=== PATIENT | female | born 1985 | race Caucasian/White ===

== ENCOUNTER 2016-12-16 15:38 | Emergency (ER) | payer OTHER ==
[~2016-12-16] VITALS: Wt 79.5 kg
[~2016-12-16 15:38] MED LIST: AZIT250T94 PO; BACTDS PO; BENZ2TAB37 PO; CEPH-443 PO; D-ME473S2 PO; ELEC100080 PO; HALO5TAB23 PO; IBUP-1542 PO; LITH300T26 PO; LORA1TAB PO; METF500T4 PO; NAPR-260 PO; NITR-58 PO; ONDA4TAB8 PO; PSEU120T51 PO; TRAM50TA2 PO
--- NOTE | 2016-12-16 16:29 | ERD ---
ER Documentation Chief Complaint Date/Time DATE: 12/16/16 TIME: 16:27 Chief Complaint PT REFERAL FOR ABD PAIN, BLURRY VISION HPI This 31-year-old diabetic female reports suboptimal control, reports change in vision, right as blurry vision. Patient reports she has a history of anorexia which is controlled she reports that she is taking her vision as prescribed. Denies polydipsia, polyuria, polyphagia. ROS All systems reviewed and are negative except as per history of present illness. Medications Home Meds Active Scripts Ibuprofen* (Motrin*) 600 Mg Tab, 600 MG PO Q8 for 10 Days, #30 TAB 0 Refills Prov:ALPHONSO GOINS PA-C 10/04/15 Tramadol HCl (Tramadol HCl) 50 Mg Tablet, 50 MG PO Q6, #20 TAB Prov:PATRICIA SHELBY NP 07/12/15 Naproxen* (Naprosyn*) 500 Mg Tablet, 500 MG PO BID Y for PAIN AND/OR INFLAMMATION, #30 TAB Prov:PATRICIA SHELBY NP 07/12/15 Pseudoephedrine Hcl (Sudafed 12 Hour) 120 Mg Tablet.sa, 120 MG PO DAILY, #30 0 Refills Prov:ALPHONSO GOINS PA-C 05/02/15 Ibuprofen* (Motrin*) 600 Mg Tab, 600 MG PO Q6, #16 TAB Prov:PATRICIO FIERRO MD 04/17/15 Dextromethorphan Hb-Promethazine Hcl* (Promethazine DM* Syrup) 473 Ml Syrup, 5 ML PO Q6 Y for COUGH for 5 Days, ML Prov:PATRICIO FIERRO MD 04/17/15 Azithromycin* (Zithromax*) 250 Mg Tablet, 250 MG PO .ZPACK DIRECTED, #6 TAB TAKE 500 MG (2 TABS) THE FIRST DAY THEN 250 MG (1 TAB) DAYS 2-5 Prov:PATRICIO FIERRO MD 04/17/15 Ibuprofen* (Motrin*) 600 Mg Tab, 600 MG PO Q6, #14 TAB Prov:PATRICIO FIERRO MD 01/29/15 Sulfamethoxazole-Trimethoprim* (Bactrim* DS) 800-160 Mg Tab, 1 TAB PO BID for 7 Days, TAB Prov:PATRICIO FIERRO MD 01/29/15 Cephalexin* (Keflex*) 500 Mg Capsule, 500 MG PO QID for 7 Days, CAP Prov:PATRICIO FIERRO MD 01/29/15 Electrolyte,Oral (Pedialyte) 1,000 Ml Solution, 100 ML PO Q6 Y for dehydration, #100 ML Prov:HAVEN JOHNSON PA-C 11/24/14 Ondansetron Hcl* (Zofran*) 4 Mg Tablet, 4 MG PO Q6H for NAUSEA AND/OR VOMITING, #30 TAB Prov:HAVEN JOHNSON PA-C 11/24/14 Lorazepam* (Lorazepam*) 1 Mg Tablet, 1 MG PO Q8H Y for ANXIETY, #8 Prov:SHANNAN LI DO 11/06/14 Nitrofurantoin Monohyd Macrocr* (Macrobid*) 100 Mg Capsr, 100 MG PO BID for 10 Days, CAP Prov:SHANNAN LI DO 11/06/14 Reported Medications Metformin* (Glucophage*) Unknown Strength Tab, PO DAILY, #20 TAB 05/27/15 Benztropine Mesylate* (Benztropine Mesylate*) 2 Mg Tablet, PO TID, 0 Refills 11/18/13 [place] Carbonate* (Lithobid*) 300 Mg Tabsr, PO BID, 0 Refills 11/18/13 Haloperidol* (Haldol*) 5 Mg Tab, 1 TAB PO BID, 0 Refills 11/18/13 Allergies Allergies: Coded Allergies: Penicillins (Verified Allergy, Unknown, 12/16/16) PMhx/Soc History of Surgery: Yes (C SECTION; APPENDECTOMY) Anesthesia Reaction: No Hx Neurological Disorder: No Hx Respiratory Disorders: No Hx Cardiac Disorders: No Hx Psychiatric Problems: Yes (ANOREXIA; SCHIZOPHRENIA, diabetes) Hx Miscellaneous Medical Probl: No Hx Alcohol Use: No Hx Substance Use: No Hx Tobacco Use: No Smoking Status: Never smoker Physical Exam Vitals Stable, triage notes reviewed Physical Exam Const: Well-nourished well-hydrated well-appearing 31-year-old female no acute distress Head: Atraumatic Eye Exam: Visual Acuity: Right eye 20/200, left eye 20/200, bilateral 20/100 Visual Hein: Normal visual hein. Patient has blind spots in her vision lateral canthus is bilaterally Lac ducts/glands: No swelling Lids w/ evertion: Normal, no foreign body ENT: Normal External Ears, Nose and Mouth. Neck: Full range of motion..~ No meningismus. Resp: Cardio: Abd: Skin: Back: Ext: Neur: Awake and alert Psych: Normal Mood and Affect Results 24 hrs Laboratory Tests Test 12/16/16 16:30 12/16/16 17:42 White Blood Count 8.810^3/ul Red Blood Count 4.6510^6/ul Hemoglobin 13.1g/dl Hematocrit 38.9% Mean Corpuscular Volume 83.7fl Mean Corpuscular Hemoglobin 28.2pg Mean Corpuscular Hemoglobin Concent 33.7g/dl Red Cell Distribution Width 13.6% Platelet Count 60592^3/UL Mean Platelet Volume 10.8fl Neutrophils % 69.4% Lymphocytes % 24.0% Monocytes % 4.9% Eosinophils % 0.9% Basophils % 0.3% Nucleated Red Blood Cells % 0.0/100WBC Neutrophils # 6.110^3/ul Lymphocytes # 2.110^3/ul Monocytes # 0.410^3/ul Eosinophils # 0.110^3/ul Basophils # 0.010^3/ul Nucleated Red Blood Cells # 0.010^3/ul Urine Color YELLOW Urine Clarity SLIGHTLY CLOUDY Urine pH 6.0 Urine Specific [place] 1.032 Urine Ketones 2+mg/dL Urine Nitrite NEGATIVEmg/dL Urine Bilirubin NEGATIVEmg/dL Urine Urobilinogen NEGATIVEmg/dL Urine Leukocyte Esterase 2+Kamla/ul Urine Microscopic RBC 2/HPF Urine Microscopic WBC 9/HPF Urine Squamous Epithelial Cells FEW/HPF Urine Bacteria FEW/HPF Urine Mucus FEW/HPF Urine Hemoglobin NEGATIVEmg/dL Urine Glucose 3+mg/dL Urine Total Protein NEGATIVEmg/dl Sodium Level 140mmol/L Potassium Level 3.9mmol/L Chloride Level 99mmol/L Carbon Dioxide Level 27mmol/L Anion Gap 18 Blood Urea Nitrogen 11mg/dl Creatinine 0.60mg/dl Glucose Level 238mg/dl Calcium Level 10.2mg/dl Phosphorus Level 3.5mg/dl Magnesium Level 1.9mg/dl Lipase 117U/L Bedside Glucose 188mg/dL Current Medications Medications (Trade) Dose Ordered Sig/Mathew Route PRN Reason Start Time Stop Time Status Last Admin Dose Admin Sodium Chloride (NS) 1,000 ml @ 1,000 mls/hr Q1H ONCE IV 12/16/16 16:30 12/16/16 17:29 DC 12/16/16 16:39 Interpretation text CBC shows no evidence of hemorrhage or infection Chemistry shows no evidence of significant electrolyte abnormalities or renal insufficiency Liver function tests shows no evidence of acute biliary or hepatic dysfunction Lipase shows no evidence of acute pancreatitis Procedures/MDM PROCEDURE: US orbits. CLINICAL INDICATION: Bilateral visual disturbance. History of diabetes. TECHNIQUE: High-resolution sonography of the orbits was performed in the axial and sagittal planes. COMPARISON: None. FINDINGS: On the right side, there is an irregular region of echogenicity posteriorly which may indicate retinal detachment with adjacent hemorrhage. On the left side, there is increased echogenicity posteriorly in a smaller region which may indicate a small region of that no potential adjacent hemorrhage. IMPRESSION: 1. Possible bilateral retinal detachment with adjacent hemorrhage. Right is worse than left. Electronically viewed and signed by .Patricio Clark MD, on 12/16/2016 18:32 This 31-year-old diabetic female presents to emergency department for evaluation of a change in vision. Patient reports sudden onset of "blurry" vision. Patient reports taking all medication as prescribed, denies injury, does not wear glasses. Patient's visual acuity is abnormal at 2200 right eye, left eye, and bilateral vision is 20/100. Patient is Chinese-speaking a rn documentation specialist provided a percent of orbits performed with radiologist's findings as : on the right side, there is an irregular region of echogenicity posteriorly which may indicate retinal detachment with adjacent hemorrhage. On the left side, there is increased echogenicity posteriorly in a smaller region which may indicate a small region of that no potential adjacent hemorrhage. Case discussed with supervising physician Dr Stewart patient will be for emergent ophthalmology treatment. Departure Diagnosis: Primary Impression: Abnormal ophthalmologic exam Additional Impression: Change in vision Condition: KORY Booth Dec 16, 2016 16:29
[2016-12-16] MEDS ORDERED: SOD CHLORIDE 0.9% 1,000 ML IV ONE (16:30)
[2016-12-16 17:23] LABS: BASOPHILS % 0.3 % (0.0-2.0); EOSINOPHILS # 0.1 10^3/ul (0.0-0.5); EOSINOPHILS % 0.9 % (0.0-7.0); HEMATOCRIT 38.9 % (37.0-47.0); HEMOGLOBIN 13.1 g/dl (12.0-16.0); LYMPHOCYTES # 2.1 10^3/ul (0.8-2.9); MEAN CORPUSCULAR HEMOGLOBIN 28.2 pg (29.0-33.0); MEAN CORPUSCULAR HGB CONC 33.7 g/dl (32.0-37.0); MEAN CORPUSCULAR VOLUME 83.7 fl (82.0-101.0); MEAN PLATELET VOLUME 10.8 fl (7.4-10.4); MONOCYTE # 0.4 10^3/ul (0.3-0.9); MONOCYTES % 4.9 % (0.0-11.0); NEUTROPHIL # 6.1 10^3/ul (1.6-7.5); NEUTROPHILS % 69.4 % (39.0-77.0); PLATELET COUNT 260 10^3/UL (140-415); RED BLOOD COUNT 4.65 10^6/ul (4.20-5.40); RED CELL DISTRIBUTION WIDTH 13.6 % (11.5-14.5); WHITE BLOOD COUNT 8.8 10^3/ul (4.8-10.8)
[2016-12-16 17:34] LABS: ADD UMIC YES; UR ASCORBIC ACID NEGATIVE (NEGATIVE); UR BACTERIA FEW /HPF (NONE SEEN); UR BILIRUBIN (Dip) NEGATIVE (NEGATIVE); UR BLOOD (Dip) NEGATIVE (NEGATIVE); UR CLARITY SLIGHTLY CLOUDY (CLEAR); UR COLOR YELLOW (YELLOW); UR GLUCOSE (Dip) 3+ mg/dL (NEGATIVE); UR KETONES (Dip) 2+ mg/dL (NEGATIVE); UR LEUKOCYTE ESTERASE (Dip) 2+ Leu/ul (NEGATIVE); UR MUCUS FEW /HPF (NONE SEEN); UR NITRITE (Dip) NEGATIVE (NEGATIVE); UR RBC 2 /HPF (0-5); UR SPECIFIC GRAVITY (Dip) 1.032 (1.003-1.030); UR SQUAMOUS EPITHELIAL CELL FEW /HPF (FEW); UR TOTAL PROTEIN (Dip) NEGATIVE (NEGATIVE); UR UROBILINOGEN (Dip) NEGATIVE (NEGATIVE)
[2016-12-16 17:51] LABS: CALCIUM 10.2 mg/dl (8.4-10.2); CREATININE 0.6 mg/dl (0.44-1.00); POTASSIUM 3.9 mmol/L (3.5-5.1)
[2016-12-16 18:29] LABS: MAGNESIUM 1.9 mg/dl (1.7-2.5); PHOSPHORUS 3.5 mg/dl (2.5-4.9)
--- NOTE | 2016-12-16 18:33 | RADRPT ---
PROCEDURE: US orbits. CLINICAL INDICATION: Bilateral visual disturbance. History of diabetes. TECHNIQUE: High-resolution sonography of the orbits was performed in the axial and sagittal planes . COMPARISON: None. FINDINGS: On the right side, there is an irregular region of echogenicity posteriorly which may indicate retin al detachment with adjacent hemorrhage. On the left side, there is increased echogenicity posteriorly in a smaller region which may indicate a small region of that no potential adjacent hemorrhage. IMPRESSION: 1. Possible bilateral retinal detachment with adjacent hemorrhage. Right is worse than left. RPTAT: QQ .Leo Clark MD, MD Date Time Electronically viewed and signed by .Leo Clark MD, MD on 12/16/2016 18:32 .R/
[2016-12-16 22:04] VITALS: BP 129/81; PULSE 81; RESP 16; TEMP 97.2
--- NOTE | 2016-12-16 22:04 | QN ---
Documentation Comment I have seen and evaluated the patient along with the PA and/or [employer] INFORMATION CLERK provider. I agree with the evaluation and plan of care. Please see their documentation for full ER course and evaluation. In short: The patient presents with bilateral vision changes since yesterday. An interpreter translator was used. On exam: The patient on my exam has clear vision bilaterally with no field cuts, no afferent pupillary defect. The patient's visual acuities are also improving and are 20/70 bilaterally and were initially 20/200. Assessment and plan: FINDINGS: On the right side, there is an irregular region of echogenicity posteriorly which may indicate retinal detachment with adjacent hemorrhage. On the left side, there is increased echogenicity posteriorly in a smaller region which may indicate a small region of that no potential adjacent hemorrhage. IMPRESSION: 1. Possible bilateral retinal detachment with adjacent hemorrhage. Right is worse than left. RPTAT: QQ The ultrasound is not consistent with the patient's clinical exam. The patient does not have vision loss. She describes cloudiness. I believe this may be more likely secondary to vitreous hemorrhage given the patient's history of diabetes. However, given the ultrasound findings I will attempt to transfer the patient to see an zigzag elastic attacher. I do not have an zigzag elastic attacher to his composition tile layer and can come to the emergency department. A phone call has been made to [facility]. Unfortunately they do not have any access at any of their facilities. We will continue to attempt to find care but transfer may be very difficult. I continue to discuss this with the patient. She states that she does not want to wait for her transfer I would like to leave the emergency room. She was advised that she needs to see an zigzag elastic attacher in 12-24 hours if not sooner. The patient states that she will take herself to an emergency room and return to our ER if any worsening symptoms occur. The patient left against my medical advice. CHITO SEYMOUR MD Dec 16, 2016 22:04
== END 2016-12-16 22:07 | disposition left against medical advice (07) ==
LOC: FTE 15:38 → E/R 22:07
DX: H53.8 Other visual disturbances (principal); E11.9 Type 2 diabetes mellitus without complications; Z01.01 Encounter for examination of eyes and vision with abnormal findings; Z79.84 Long term (current) use of oral hypoglycemic drugs
CPT/HCPCS: 36415; 76536; 80048; 81001; 82962; 83690; 83735; 84100; 85025; J7030; Z7502

== ENCOUNTER 2018-04-17 22:13 | Emergency (ER) | payer OTHER ==
[~2018-04-17] VITALS: Ht 162.6 cm; Wt 79.7 kg
[~2018-04-17 22:13] MED LIST changes: +AZIT250T PO; -AZIT250T94 PO; -BENZ2TAB37 PO; +BENZ2TAB7 PO; +METF-849 PO; -METF500T4 PO; -NAPR-260 PO; +NAPR-985 PO; +PSEU120T12 PO; -PSEU120T51 PO
[2018-04-17 22:19] VITALS: Ht 162.6 cm; Wt 79.7 kg
[2018-04-18] MEDS ORDERED: ONDANSETRON 4 MG INJ IV STA (02:45)
[2018-04-18] MEDS ORDERED: SOD CHLORIDE 0.9% 1,000 ML IV STA (02:45)
[2018-04-18] MEDS ORDERED: KETOROLAC 30 MG INJ IV STA (02:45)
--- NOTE | 2018-04-18 02:51 | ERD ---
ER Documentation Chief Complaint Chief Complaint lower back pain/dizziness x 2 days HPI 33-year-old female presents to emergency department for complaints of lower back pain for 2 days, radiating to the lower abdomen. Patient also complains of dizziness and chills. Patient denies any fevers. Patient has dark colored urine foul-smelling urine at times. Denies any chest pain or palpitations. Patient denies any diarrhea but has episodes of vomiting. Complains of pain sharp pain, 6/10 scale, not better or worse with anything. ROS All systems reviewed and are negative except as per history of present illness. Medications Home Meds Active Scripts Ibuprofen* (Motrin*) 600 Mg Tab, 600 MG PO Q8 for 10 Days, #30 TAB 0 Refills Prov:ALPHONSO GOINS PA-C 10/04/15 Tramadol HCl (Tramadol HCl) 50 Mg Tablet, 50 MG PO Q6, #20 TAB Prov:PATRICIA SHELBY NP 07/12/15 Naproxen* (Naprosyn*) 500 Mg Tablet, 500 MG PO BID PRN for PAIN AND/OR INF LAMMATION, #30 TAB Prov:PATRICIA SHELBY NP 07/12/15 Pseudoephedrine Hcl (Sudafed 12 Hour) 120 Mg Tablet.sa, 120 MG PO DAILY, #30 0 Refills Prov:ALPHONSO GOINS PA-C 05/02/15 Ibuprofen* (Motrin*) 600 Mg Tab, 600 MG PO Q6, #16 TAB Prov:PATRICIO FIERRO MD 04/17/15 Dextromethorphan Hb-Promethazine Hcl* (Promethazine DM* Syrup) 473 Ml Syrup, 5 ML PO Q6 PRN for COUGH for 5 Days, ML Prov:PATRICIO FIERRO MD 04/17/15 Azithromycin* (Zithromax*) 250 Mg Tablet, 250 MG PO .ZPACK DIRECTED, #6 TAB TAKE 500 MG (2 TABS) THE FIRST DAY THEN 250 MG (1 TAB) DAYS 2-5 Prov:PATRICIO FIERRO MD 04/17/15 Ibuprofen* (Motrin*) 600 Mg Tab, 600 MG PO Q6, #14 TAB Prov:PATRICIO FIERRO MD 01/29/15 Sulfamethoxazole-Trimethoprim* (Bactrim* DS) 800-160 Mg Tab, 1 TAB PO BID for 7 Days, TAB Prov:PATRICIO FIERRO MD 01/29/15 Cephalexin* (Keflex*) 500 Mg Capsule, 500 MG PO QID for 7 Days, CAP Prov:PATRICIO FIERRO MD 01/29/15 Electrolyte,Oral (Pedialyte) 1,000 Ml Solution, 100 ML PO Q6 PRN for dehydration, #100 ML Prov:HAVEN JOHNSON PA-C 11/24/14 Ondansetron Hcl* (Zofran*) 4 Mg Tablet, 4 MG PO Q6H for NAUSEA AND/OR VOMITING, #30 TAB Prov:HAVEN JOHNSON PA-C 11/24/14 Lorazepam* (Lorazepam*) 1 Mg Tablet, 1 MG PO Q8H PRN for ANXIETY, #8 Prov:SHANNAN LI DO 11/06/14 Nitrofurantoin Monohyd Macrocr* (Macrobid*) 100 Mg Capsr, 100 MG PO BID for 10 Days, CAP Prov:SHANNAN LI DO 11/06/14 Reported Medications Metformin* (Glucophage*) Unknown Strength Tab, PO DAILY, #20 TAB 05/27/15 Benztropine Mesylate* (Benztropine Mesylate*) 2 Mg Tablet, PO TID, 0 Refills 11/18/13 [place] Carbonate* (Lithobid*) 300 Mg Tabsr, PO BID, 0 Refills 11/18/13 Haloperidol* (Haldol*) 5 Mg Tab, 1 TAB PO BID, 0 Refills 11/18/13 Allergies Allergies: Coded Allergies: Penicillins (Verified Allergy, Unknown, 12/16/16) PMhx/Soc History of Surgery: Yes (C SECTION; APPENDECTOMY) Anesthesia Reaction: No Hx Neurological Disorder: No Hx Respiratory Disorders: No Hx Cardiac Disorders: No Hx Psychiatric Problems: Yes (ANOREXIA; SCHIZOPHRENIA, diabetes) Hx Miscellaneous Medical Probl: No Hx Alcohol Use: No Hx Substance Use: No Hx Tobacco Use: No Smoking Status: Never smoker FmHx Family History: No diabetes, No coronary disease, No other Physical Exam Vitals Vital Signs Date Temp Pulse Resp B/P (MAP) Pulse Ox O2 O2 Flow FiO2 Time Delivery Rate 04/18/18 98.0 83 18 87/54 (65) 95 Room Air 05:02 04/17/18 97.1 118 20 109/65 96 22:19 (80) Physical Exam GENERAL: The patient is well developed and appropriate for usual state of health, in no apparent distress. CHEST: Clear to auscultation bilaterally. There are no rales, wheezes or rhonchi. HEART: Regular rate and rhythm. No murmurs, clicks, rubs or gallops. No S3 or S4. ABDOMEN: Soft, nontender and nondistended. Good bowel sounds. No rebound or guarding. No gross peritonitis. No gross organomegaly or masses. No Colin sign or McBurney point tenderness. BACK: No midline or flank tenderness. EXTREMITIES: Equal pulses bilaterally. There is no peripheral clubbing, cyanosis or edema. No focal swelling or erythema. Full range of motion. Grossly neurovascularly intact. NEURO: Alert and oriented. Cranial nerves 2-12 intact. Motor strength in all 4 extremities with 5/5 strength. Sensation grossly intact. Normal speech and gait. SKIN: There is no apparent rash or petechia. The skin is warm and dry. HEMATOLOGIC AND LYMPHATIC: There is no evidence of excessive bruising or lymphedema. No gross cervical, axillary, or inguinal lymphadenopathy. Result Diagram: 04/18/18 0300 04/18/18 0300 Results 24 hrs Laboratory Tests Test 04/18/18 02:58 04/18/18 03:00 POC Beta HCG, Qualitative NEGATIVE White Blood Count 18.3 10^3/ul Red Blood Count 4.28 10^6/ul Hemoglobin 11.6 g/dl Hematocrit 35.5 % Mean Corpuscular Volume 82.9 fl Mean Corpuscular Hemoglobin 27.1 pg Mean Corpuscular Hemoglobin Concent 32.7 g/dl Red Cell Distribution Width 14.0 % Platelet Count 295 10^3/UL Mean Platelet Volume 11.1 fl Immature Granulocytes % 0.800 % Neutrophils % 86.5 % Lymphocytes % 3.4 % Monocytes % 8.9 % Eosinophils % 0.1 % Basophils % 0.3 % Nucleated Red Blood Cells % 0.0 /100WBC Immature Granulocytes # 0.140 10^3/ul Neutrophils # 15.8 10^3/ul Lymphocytes # 0.6 10^3/ul Monocytes # 1.6 10^3/ul Eosinophils # 0.0 10^3/ul Basophils # 0.1 10^3/ul Nucleated Red Blood Cells # 0.0 10^3/ul Urine Color YELLOW Urine Clarity TURBID Urine pH 6.0 Urine Specific [place] 1.014 Urine Ketones NEGATIVE mg/dL Urine Nitrite POSITIVE mg/dL Urine Bilirubin NEGATIVE mg/dL Urine Urobilinogen NEGATIVE mg/dL Urine Leukocyte Esterase 3+ Kamla/ul Urine Microscopic RBC 5 /HPF Urine Microscopic WBC > 182 /HPF Urine Squamous Epithelial Cells FEW /HPF Urine Bacteria FEW /HPF Urine Hemoglobin 2+ mg/dL Urine Glucose 3+ mg/dL Urine Total Protein 2+ mg/dl Sodium Level 137 mmol/L Potassium Level 5.2 mmol/L Chloride Level 96 mmol/L Carbon Dioxide Level 26 mmol/L Anion Gap 15 Blood Urea Nitrogen 28 mg/dl Creatinine 1.58 mg/dl Est Glomerular Filtrat Rate mL/min 37 mL/min Glucose Level 299 mg/dl Calcium Level 10.8 mg/dl Total Bilirubin 0.5 mg/dl Direct Bilirubin 0.00 mg/dl Indirect Bilirubin 0.5 mg/dl Aspartate Amino Transf (AST/SGOT) 26 IU/L Alanine Aminotransferase (ALT/SGPT) 10 IU/L Alkaline Phosphatase 107 IU/L Total Protein 8.1 g/dl Albumin 4.5 g/dl Globulin 3.60 g/dl Albumin/Globulin Ratio 1.25 Lipase 59 U/L Current Medications Medications Dose Sig/Mathew Start Time Status Last (Trade) Ordered Route PRN Stop Time Admin Dose Reason Admin Sodium 1,000 ml @ Q1H STAT 04/18/18 DC 04/18/18 Chloride 1,000 mls/hr IV 02:45 03:09 04/18/18 03:44 Ondansetron 4 mg ONCE STAT 04/18/18 DC 04/18/18 HCl (Zofran IV 02:45 03:06 Inj) 04/18/18 02:47 Ketorolac 30 mg ONCE STAT 04/18/18 DC 04/18/18 Tromethamine IV 02:45 03:07 (Toradol) 04/18/18 02:47 200 ml @ ONCE ONCE 04/18/18 04/18/18 Ciprofloxacin 200 mls/hr IVPB 04:30 04:16 / Dextrose 04/18/18 05:29 Normal saline IV bolus was given here in emergency department for rehydration, patient tolerated IV fluids. Patient was given medication for pain here in emergency department, after treatment, patient verbalized feeling much better. Patient's pain is improved. Patient was given Zofran here in the emergency department. After treatment, patient was able to tolerate po fluids here in the emergency department without any vomiting. There is no signs and symptoms of dehydration. PROCEDURE: CT Abdomen and Pelvis Without Intravenous Contrast CLINICAL INDICATION: Abdominal Pain TECHNIQUE: Axial computed tomography images of the abdomen and pelvis without intravenous contrast. Sagittal and coronal reformatted images were created and reviewed. CTDIvol (mGy) = <13.04 mGy>; total DLP (mGy-cm) = <835.19 mGy.cm> This CT exam was performed using one or more of the following dose reduction techniques: automated exposure control, adjustment of the mA and/or kV according to patient size, and/or use of iterative reconstruction technique. DICOM images are available. COMPARISON: 03/27/2013 FINDINGS: LUNG BASES: Slight bibasilar atalectasis. HEART: Heart size is top normal. ABDOMEN: LIVER: The liver is now slightly enlarged, 18.4 cm. There is diffuse hepatic steatosis, new. GALLBLADDER AND BILE DUCTS: Unremarkable No calcified stones. No ductal dilation. PANCREAS: Unremarkable No ductal dilation. SPLEEN: Unremarkable No splenomegaly. ADRENALS: Unremarkable No mass. KIDNEYS AND URETERS: See below. STOMACH AND BOWEL: There has been increase in size of what may represent small stones in a calyceal diverticulum in the lower pole of the right kidney. The abnormality measures 2.8 x 2.5 cm. A small calcification is seen on the lateral right liver capsule. Tiny probable cyst in the upper pole. There is slight right perinephric stranding. No stones are seen in either ureter. Minimal left pelviectasis and slight left perinephric stranding. Large stool burden. No evidence for small bowel obstruction, free air, or abscess. PELVIS: APPENDIX: The appendix is not seen with certainty. No pericecal inflammatory change is seen. BLADDER: Unremarkable No stones. REPRODUCTIVE: The uterus and adnexa are grossly unremarkable. ABDOMEN and PELVIS: INTRAPERITONEAL SPACE: See above. BONES/JOINTS: No bony abnormality is seen. SOFT TISSUES: Small fat-containing umbilical hernia. VASCULATURE: Unremarkable No abdominal aortic aneurysm. LYMPH NODES: Tiny retroperitoneal nodes. OTHER FINDINGS: IMPRESSION: 1. Increase in size of what may represent a large calyceal diverticulum in the right kidney with small stones dependently. A renal mass cannot be completely excluded. Right greater than left perinephric stranding. Pyelonephritis is a consideration as no ureter stones are seen. Follow-up dedicated renal CT with without contrast is suggested. 2. New hepatomegaly and hepatic steatosis. 3. Large stool burden. No evidence for small bowel obstruction, free air, or abscess. RPTAT: HLBE Hollie Hernandez, Physician Date Time Electronically viewed and signed by Hollie Hernandez, Physician on 04/18/2018 03:46 LE/ CC: RAQUEL ISRAEL MILLINERY DEPARTMENT MANAGER [phone] Procedures/MDM EKG was done, read by me and is normal sinus rhythm at a rate of 96, normal axis, there is no ST changes or changes in the EKG that indicates any cardiac emergencies at this time. Patient's EKG was also reviewed by Dr. Echeverria. Impression: no acute findings on EKG Medical Decision Making: Symptoms most likely consistent with acute pyelonephritis. Outpatient management is appropriate at this time since patient stable. No symptoms of any sepsis. There is low suspicion for abdominal emergencies at this time. Patients abdominal exam is normal at this time. Patients radiology exam does not show any abdominal emergencies at this time. There is low suspicion for appendicitis, cholecystitis, abdominal aortic aneurysms or peritonitis at this time. There is low suspicion for sepsis. Patient appears well and is hemodynamically stable. Disposition: Home. Condition: Stable Prescription Cipro, Pyridium, [place], Zofran Instructions: Patient is advised to take medications as prescribed. Patient is advised to rest, increase fluid intake and do brat diet for next 1-2 days and progress as tolerated. Patient is advised that if symptoms are worse, severe abdominal pain, uncontrolled vomiting, high fever, severe flank pain, worst signs and symptoms, to return to the emergency department immediately. Otherwise, patient can follow up with primary care doctor in 5-7 days. Disclaimer: Inadvertent spelling and grammatical errors are likely due to EHR/dictation software use and do not reflect on the overall quality of patient care. Also, please note that the electronic time recorded on this note does not necessarily reflect the actual time of the patient encounter. Departure Diagnosis: Primary Impression: Pyelonephritis Condition: Stable Patient Instructions: Pyelonephritis, Female (Adult) Additional Instructions: Patient is advised to take medications as prescribed. Patient is advised to rest, increase fluid intake and do brat diet for next 1-2 days and progress as tolerated. Patient is advised that if symptoms are worse, severe abdominal pain, uncontrolled vomiting, high fever, severe flank pain, worst signs and symptoms, to return to the emergency department immediately. Otherwise, patient can follow up with primary care doctor in 5-7 days. RAQUEL ISRAEL NP Apr 18, 2018 02:51
[2018-04-18] MEDS ORDERED: CIPROFLOXACIN 400MG/D5W 200 ML IVPB ONE (04:30)
[2018-04-18 05:02] VITALS: BP 87/54; PULSE 83; RESP 18
[2018-04-18] MEDS ORDERED: ONDA4TAB14 PO (05:10)
[2018-04-18] MEDS ORDERED: HYDR-4011 PO (05:10)
[2018-04-18] MEDS ORDERED: CIPR500T4 PO (05:10)
[2018-04-18] MEDS ORDERED: PHEN-538 PO (05:10)
== END 2018-04-18 05:39 | disposition home or self-care (01) ==
LOC: FTE 22:13
DX: N12 Tubulo-interstitial nephritis, not specified as acute or chronic (principal); R10.9 Unspecified abdominal pain
CPT/HCPCS: 36415; 74176; 80053; 81001; 81025; 83690; 85025; 87086; 93005; 96361; 96365; 96375; J0744; J1885; J2405; J7030; Z7502

== ENCOUNTER 2018-05-24 11:43 | Emergency (ER) | payer OTHER ==
[~2018-05-24] VITALS: Ht 162.6 cm; Wt 73.7 kg
[~2018-05-24 11:43] MED LIST changes: +CIPR500T4 PO; +HYDR-4011 PO; +ONDA4TAB14 PO; +PHEN-538 PO
[2018-05-24 12:09] VITALS: BP 133/69; Ht 162.6 cm; Wt 73.7 kg
[2018-05-24] MEDS ORDERED: KETOROLAC 30 MG INJ IM STA (14:12)
[2018-05-24] MEDS ORDERED: CEPHALEXIN 500 MG CAP PO ONE (15:00)
[2018-05-24] MEDS ORDERED: CEPH-443 PO (15:08)
[2018-05-24] MEDS ORDERED: BUTA1CAP38 PO (15:08)
--- NOTE | 2018-05-24 15:11 | ERD ---
ER Documentation Chief Complaint Chief Complaint headache x 6 days, no neuro deficits HPI 33-year-old female presents with bitemporal headache for the last 6 days. She has visual changes, vomiting, deficits. States history of migraines and is taking Imitrex. Denies any history of trauma. Denies any URI symptoms, urinary complaints. ROS All systems reviewed and are negative except as per history of present illness. Medications Home Meds Active Scripts Cephalexin* (Keflex*) 500 Mg Capsule, 500 MG PO QID for 5 Days, CAP Prov:PATRICIO FIERRO MD 05/24/18 Akcxycozoz-Yovfaztoelghu-Khquisoa* (Fioricet*) 50-300-40 Mg Capsule, 1 CAP PO Q4H PRN for HEADACHE, #15 CAP Prov:PATRICIO FIERRO MD 05/24/18 Ondansetron (Ondansetron Odt) 4 Mg Tab.rapdis, 4 MG PO Q6H PRN for NAUSEA AND/OR VOMITING, #20 TAB Prov:RAQUEL ISRAEL NP 04/18/18 Hydrocodone/Acetaminophen ([place] 5-325 Tablet) 1 Each Tablet, 1 TAB PO Q6H PRN for SEVERE PAIN LEVEL 7-10, #7 TAB Prov:RAQUEL ISRAEL NP 04/18/18 Phenazopyridine Hcl* (Pyridium*) 200 Mg Tab, 200 MG PO TID PRN for URINARY PAIN, #6 TAB Prov:RAQUEL ISRAEL NP 04/18/18 Ciprofloxacin Hcl* (Ciprofloxacin Hcl*) 500 Mg Tablet, 500 MG PO BID for 10 Days, TAB Prov:RAQUEL ISRAEL NP 04/18/18 Ibuprofen* (Motrin*) 600 Mg Tab, 600 MG PO Q8 for 10 Days, #30 TAB 0 Refills Prov:ALPHONSO GOINS PA-C 10/04/15 Tramadol HCl (Tramadol HCl) 50 Mg Tablet, 50 MG PO Q6, #20 TAB Prov:PATRICIA SHELBY NP 07/12/15 Naproxen* (Naprosyn*) 500 Mg Tablet, 500 MG PO BID PRN for PAIN AND/OR INFLAMMATION, #30 TAB Prov:PATRICIA SHELBY NP 07/12/15 Pseudoephedrine Hcl (Sudafed 12 Hour) 120 Mg Tablet.sa, 120 MG PO DAILY, #30 0 Refills Prov:ALPHONSO GOINS PA-C 05/02/15 Ibuprofen* (Motrin*) 600 Mg Tab, 600 MG PO Q6, #16 TAB Prov:PATRICIO FIERRO MD 04/17/15 Dextromethorphan Hb-Promethazine Hcl* (Promethazine DM* Syrup) 473 Ml Syrup, 5 ML PO Q6 PRN for COUGH for 5 Days, ML Prov:PATRICIO FIERRO MD 04/17/15 Azithromycin* (Zithromax*) 250 Mg Tablet, 250 MG PO .ZPACK DIRECTED, #6 TAB TAKE 500 MG (2 TABS) THE FIRST DAY THEN 250 MG (1 TAB) DAYS 2-5 Prov:PATRICIO FIERRO MD 04/17/15 Ibuprofen* (Motrin*) 600 Mg Tab, 600 MG PO Q6, #14 TAB Prov:PATRICIO FIERRO MD 01/29/15 Sulfamethoxazole-Trimethoprim* (Bactrim* DS) 800-160 Mg Tab, 1 TAB PO BID for 7 Days, TAB Prov:PATRICIO FIERRO MD 01/29/15 Cephalexin* (Keflex*) 500 Mg Capsule, 500 MG PO QID for 7 Days, CAP Prov:PATRICIO FIERRO MD 01/29/15 Electrolyte,Oral (Pedialyte) 1,000 Ml Solution, 100 ML PO Q6 PRN for dehydration, #100 ML Prov:HAVEN JOHNSON PA-C 11/24/14 Ondansetron Hcl* (Zofran*) 4 Mg Tablet, 4 MG PO Q6H for NAUSEA AND/OR VOMITING, #30 TAB Prov:HAVEN JOHNSON PA-C 11/24/14 Lorazepam* (Lorazepam*) 1 Mg Tablet, 1 MG PO Q8H PRN for ANXIETY, #8 Prov:SHANNAN LI DO 11/06/14 Nitrofurantoin Monohyd Macrocr* (Macrobid*) 100 Mg Capsr, 100 MG PO BID for 10 Days, CAP Prov:SHANNAN LI DO 11/06/14 Reported Medications Metformin* (Glucophage*) Unknown Strength Tab, PO DAILY, #20 TAB 05/27/15 Benztropine Mesylate* (Benztropine Mesylate*) 2 Mg Tablet, PO TID, 0 Refills 11/18/13 [place] Carbonate* (Lithobid*) 300 Mg Tabsr, PO BID, 0 Refills 11/18/13 Haloperidol* (Haldol*) 5 Mg Tab, 1 TAB PO BID, 0 Refills 11/18/13 Allergies Allergies: Coded Allergies: Penicillins (Verified Allergy, Unknown, 12/16/16) PMhx/Soc History of Surgery: Yes (C SECTION; APPENDECTOMY) Anesthesia Reaction: No Hx Neurological Disorder: No Hx Respiratory Disorders: No Hx Cardiac Disorders: No Hx Psychiatric Problems: Yes (ANOREXIA; SCHIZOPHRENIA, diabetes) Hx Miscellaneous Medical Probl: No Hx Alcohol Use: No Hx Substance Use: No Hx Tobacco Use: No Smoking Status: Never smoker FmHx Family History: No diabetes, No coronary disease, No other Physical Exam Vitals Vital Signs Date Temp Pulse Resp B/P (MAP) Pulse Ox O2 O2 Flow FiO2 Time Delivery Rate 05/24/18 97.6 123 18 133/69 97 12:09 (90) Physical Exam Const: No acute distress Head: Atraumatic Eyes: Normal Conjunctiva. Eyes Shawn and extraocular movements intact. ENT: Normal External Ears, Nose and Mouth. TMs and oropharynx normal. Neck: Full range of motion. No meningismus. Resp: Clear to auscultation bilaterally Cardio: Regular rate and rhythm, no murmurs Abd: Soft, non tender, non distended. Normal bowel sounds Skin: No petechiae or rashes Back: No midline or flank tenderness Ext: No cyanosis, or edema Neur: Awake and alert. Cranial nerves II through XII grossly intact. Negative Romberg and no pronator drift. Normal gait. Psych: Normal Mood and Affect Results 24 hrs Laboratory Tests Test 05/24/18 14:28 05/24/18 14:34 POC Beta HCG, Qualitative NEGATIVE Bedside Urine pH (LAB) 5.5 Bedside Urine Protein (LAB) Negative Bedside Urine Glucose (UA) >=1.0% Bedside Urine Ketones (LAB) 1+ Bedside Urine Blood 1+ Bedside Urine Nitrite (LAB) Positive Bedside Urine Leukocyte Esterase (L Trace Current Medications Medications Dose Sig/Mathew Start Time Status Last (Trade) Ordered Route PRN Stop Time Admin Dose Reason Admin Ketorolac 30 mg ONCE STAT 05/24/18 DC 05/24/18 Tromethamine IM 14:12 14:34 (Toradol) 05/24/18 14:13 Cephalexin 500 mg ONCE ONCE 05/24/18 DC (Keflex) PO 15:00 05/24/18 15:06 Procedures/MDM Urine shows nitrites and leukocyte esterase. Patient presents with signs and symptoms most consistent with a tension headache. She is well-appearing. Will treat with Fioricet, Keflex, primary care follow-up and return precautions. Doubt subarachnoid, central lesion. the patient was stable with no new complaints during the ER course. Clinically, there is no current evidence to suggest meningitis, sepsis, acute abdomen, pneumonia, stroke, acute coronary syndrome, pulmonary embolism, aortic dissection or any other emergent condition appearing to require further evaluation or hospitalization. Patient counseled regarding my diagnostic impression and care plan. Prior to discharge all questions answered. Pt agrees with treatment plan and understands strict return precautions. Pt is instructed to follow up with primary care provider within 24- 48 hours. Precautionary instructions provided including instructions to return to the ER if not improving or for any worsening or changing symptoms or concerns. Departure Diagnosis: Primary Impression: Headache Headache type: unspecified Headache chronicity pattern: unspecified pattern Intractability: not intractable Qualified Codes: R51 - Headache Condition: Stable Patient Instructions: Urinary Tract Infections in Women, Headache, Unspecified Additional Instructions: orina tiene infeccion y vamos a tratar. Cheque otro vez con agarwal doctor primario en el proximo herron or regresa para mas o nueva simptomas. PATRICIO FIERRO MD May 24, 2018 15:11
[2018-05-24 15:17] VITALS: PULSE 68; RESP 20
== END 2018-05-24 15:18 | disposition home or self-care (01) ==
LOC: FTE 11:43
DX: R51 Headache (principal); E11.9 Type 2 diabetes mellitus without complications; Z79.84 Long term (current) use of oral hypoglycemic drugs
CPT/HCPCS: 81003; 81025; 96372; J1885; Z7502

== ENCOUNTER 2018-07-13 09:32 | Inpatient (IN) | payer OTHER ==
[~2018-07-13] VITALS: Ht 162.6 cm; Wt 73.0 kg
[~2018-07-13 09:32] MED LIST changes: +BUTA1CAP38 PO
[2018-07-13] MEDS ORDERED: SOD CHLORIDE 0.9% 1,000 ML IV STA (10:11)
[2018-07-13] MEDS ORDERED: LISI10TA2 PO (10:29)
[2018-07-13] MEDS ORDERED: FER325 PO (10:29)
[2018-07-13] MEDS ORDERED: DOCU-144 PO (10:29)
[2018-07-13] MEDS ORDERED: GEMF600T8 PO (10:30)
[2018-07-13] MEDS ORDERED: SUMA100T4 PO (10:30)
[2018-07-13] MEDS ORDERED: GABA300C16 PO (10:31)
[2018-07-13] MEDS ORDERED: OMEP20CA16 PO (10:31)
[2018-07-13] MEDS ORDERED: CANA1TAB8 PO (10:32)
[2018-07-13] MEDS ORDERED: BENZ2TAB7 PO (10:33)
[2018-07-13] MEDS ORDERED: HALO5TAB23 PO (10:34)
[2018-07-13] MEDS ORDERED: PALI273S IM (10:41)
[2018-07-13] MEDS ORDERED: LEVOFLOXACIN 750MG/D5W (PMX) 150 ML IVPB ONE (11:30)
[2018-07-13] MEDS ORDERED: SOD CHLORIDE 0.9% 1,000 ML IV ONE ×2 (11:30→13:30)
--- NOTE | 2018-07-13 12:13 | ERD ---
ER Documentation Chief Complaint Chief Complaint DIZZINESS/BLURRY VISION X 2 DAYS - HX OF DIABETES HPI 33-year-old female presents the emergency department complaining of generalized weakness. Patient's is a somewhat difficult historian which I suspect is secondary to her underlying psychiatric disease. She states that she has been having a generalized weakness for the last few days. She reports no headache or focal weakness. She reports no fevers or chills. She reports no urinary symptoms. Patient reports that she is been using her medications as normal. ROS All systems reviewed and are negative except as per history of present illness. Medications Home Meds Reported Medications Paliperidone Palmitate (Invega Trinza) Unknown Strength Syringe, 1 IM Q 3 MON. 07/13/18 Haloperidol* (Haldol*) 5 Mg Tab, 5 MG PO BID, TAB TAKE 1 TAB-QAM AND 2 TAB-QHS 07/13/18 Benztropine Mesylate* (Benztropine Mesylate*) 2 Mg Tablet, 2 MG PO BID, TAB 07/13/18 Canagliflozin/Metformin HCl (Invokamet Xr 150-1,000 mg Tab) 1 Each Tab.bp.24h, 1 EACH PO BID, TAB 07/13/18 Omeprazole* (Omeprazole*) 20 Mg Capsule.dr, 20 MG PO DAILY, #30 CAP 07/13/18 Gabapentin* (Gabapentin*) 300 Mg Capsule, 300 MG PO BID, #60 CAP 07/13/18 Sumatriptan Succinate* (Sumatriptan Succinate*) 100 Mg Tablet, 100 MG PO NEEDED PRN for MIGRAINE HEADACHE, TAB May repeat after 2 hours if needed; MAX 200 mg/24 hours 07/13/18 Gemfibrozil* (Gemfibrozil*) 600 Mg Tablet, 600 MG PO BID, TAB 07/13/18 Docusate Sodium* (Colace*) 100 Mg Capsule, 100 MG PO DAILY, #30 CAP 07/13/18 Ferrous Sulfate* (Ferrous Sulfate*) 325 Mg Tabec, 325 MG PO DAILY, TAB 07/13/18 Lisinopril* (Lisinopril*) 10 Mg Tablet, 10 MG PO DAILY, #30 TAB 07/13/18 Discontinued Reported Medications Metformin* (Glucophage*) Unknown Strength Tab, PO DAILY, #20 TAB 05/27/15 Benztropine Mesylate* (Benztropine Mesylate*) 2 Mg Tablet, PO TID, 0 Refills 11/18/13 [place] Carbonate* (Lithobid*) 300 Mg Tabsr, PO BID, 0 Refills 11/18/13 Haloperidol* (Haldol*) 5 Mg Tab, 1 TAB PO BID, 0 Refills 11/18/13 Discontinued Scripts Cephalexin* (Keflex*) 500 Mg Capsule, 500 MG PO QID for 5 Days, CAP Prov:PATRICIO FIERRO MD 05/24/18 Jpftpglyyi-Qizynohxozrii-Girgsbkz* (Fioricet*) 50-300-40 Mg Capsule, 1 CAP PO Q4H PRN for HEADACHE, #15 CAP Prov:PATRICIO FIERRO MD 05/24/18 Ondansetron (Ondansetron Odt) 4 Mg Tab.rapdis, 4 MG PO Q6H PRN for NAUSEA AND/OR VOMITING, #20 TAB Prov:RAQUEL ISRAEL NP 04/18/18 Hydrocodone/Acetaminophen ([place] 5-325 Tablet) 1 Each Tablet, 1 TAB PO Q6H PRN for SEVERE PAIN LEVEL 7-10, #7 TAB Prov:RAQUEL ISRAEL NP 04/18/18 Phenazopyridine Hcl* (Pyridium*) 200 Mg Tab, 200 MG PO TID PRN for URINARY PAIN, #6 TAB Prov:RAQUEL ISRAEL NP 04/18/18 Ciprofloxacin Hcl* (Ciprofloxacin Hcl*) 500 Mg Tablet, 500 MG PO BID for 10 Days, TAB Prov:RAQUEL ISRAEL NP 04/18/18 Ibuprofen* (Motrin*) 600 Mg Tab, 600 MG PO Q8 for 10 Days, #30 TAB 0 Refills Prov:ALPHONSO GOINS PA-C 10/04/15 Tramadol HCl (Tramadol HCl) 50 Mg Tablet, 50 MG PO Q6, #20 TAB Prov:PATRICIA SHELBY NP 07/12/15 Naproxen* (Naprosyn*) 500 Mg Tablet, 500 MG PO BID PRN for PAIN AND/OR INFLAMMATION, #30 TAB Prov:PATRICIA SHELBY NP 07/12/15 Pseudoephedrine Hcl (Sudafed 12 Hour) 120 Mg Tablet.sa, 120 MG PO DAILY, #30 0 Refills Prov:ALPHONSO GOINS PA-C 05/02/15 Ibuprofen* (Motrin*) 600 Mg Tab, 600 MG PO Q6, #16 TAB Prov:PATRICIO FIERRO MD 04/17/15 Dextromethorphan Hb-Promethazine Hcl* (Promethazine DM* Syrup) 473 Ml Syrup, 5 ML PO Q6 PRN for COUGH for 5 Days, ML Prov:PATRICIO FIERRO MD 04/17/15 Azithromycin* (Zithromax*) 250 Mg Tablet, 250 MG PO .ZPACK DIRECTED, #6 TAB TAKE 500 MG (2 TABS) THE FIRST DAY THEN 250 MG (1 TAB) DAYS 2-5 Prov:PATRICIO FIERRO MD 04/17/15 Ibuprofen* (Motrin*) 600 Mg Tab, 600 MG PO Q6, #14 TAB Prov:PATRICIO FIERRO MD 01/29/15 Sulfamethoxazole-Trimethoprim* (Bactrim* DS) 800-160 Mg Tab, 1 TAB PO BID for 7 Days, TAB Prov:PATRICIO FIERRO MD 01/29/15 Cephalexin* (Keflex*) 500 Mg Capsule, 500 MG PO QID for 7 Days, CAP Prov:PATRICIO FIERRO MD 01/29/15 Electrolyte,Oral (Pedialyte) 1,000 Ml Solution, 100 ML PO Q6 PRN for dehydration, #100 ML Prov:HAVEN JOHNSON PA-C 11/24/14 Ondansetron Hcl* (Zofran*) 4 Mg Tablet, 4 MG PO Q6H for NAUSEA AND/OR VOMITING, #30 TAB Prov:HAVEN JOHNSON PA-C 11/24/14 Lorazepam* (Lorazepam*) 1 Mg Tablet, 1 MG PO Q8H PRN for ANXIETY, #8 Prov:SHANNAN LI DO 11/06/14 Nitrofurantoin Monohyd Macrocr* (Macrobid*) 100 Mg Capsr, 100 MG PO BID for 10 Days, CAP Prov:SHANNAN LI DO 11/06/14 Allergies Allergies: Coded Allergies: Penicillins (Verified Allergy, Unknown, 07/13/18) PMhx/Soc History of Surgery: Yes (C SECTION; APPENDECTOMY) Anesthesia Reaction: No Hx Neurological Disorder: No Hx Respiratory Disorders: No Hx Cardiac Disorders: No Hx Psychiatric Problems: Yes (ANOREXIA; SCHIZOPHRENIA, diabetes) Hx Miscellaneous Medical Probl: No Hx Alcohol Use: No Hx Substance Use: No Hx Tobacco Use: No Smoking Status: Never smoker FmHx Noncontributory for chief complaint Physical Exam Vitals Vital Signs Date Temp Pulse Resp B/P (MAP) Pulse Ox O2 O2 Flow FiO2 Time Delivery Rate 07/13/18 90 18 86/41 (56) 99 Room Air 12:00 07/13/18 90 18 92/41 (58) 99 Room Air 09:47 07/13/18 97.5 102 24 85/46 (59) 95 09:39 Physical Exam GENERAL: Patient is an ill-appearing female HEENT: Pupils equal, round, and reactive to light. EOMI. There is no scleral icterus. NECK: C-spine is soft and supple, there is no meningismus. There is no cervical lymphadenopathy. LUNGS: Clear to auscultation bilaterally. There are no rales, wheezes or rhonchi. HEART: Regular rate and rhythm, no murmurs, clicks, rubs or gallops. ABDOMEN: Soft, non-tender, non-distended. There are bowel sounds in all four quadrants. No rebound or guarding. EXTREMITIES: There is no peripheral cyanosis or edema. No focal swelling or erythema. NEURO: The patient moves all four extremities with 5/5 strength. Cranial nerves II - XII are intact. Normal gait. Alert and oriented SKIN: There is no apparent rash or petechiae. HEME/LYMPHATIC: There is no evidence of excessive bruising or lymphedema. PSYCHIATRIC: The patient does not appear anxious or depressed. She is somewhat slow to respond Result Diagram: 07/13/18 1019 07/13/18 1019 Results 24 hrs Laboratory Tests Test 07/13/18 10:19 07/13/18 10:44 07/13/18 11:32 White Blood Count 13.9 10^3/ul Red Blood Count 3.87 10^6/ul Hemoglobin 10.8 g/dl Hematocrit 33.9 % Mean Corpuscular Volume 87.6 fl Mean Corpuscular Hemoglobin 27.9 pg Mean Corpuscular 31.9 g/dl Hemoglobin Concent Red Cell Distribution Width 14.7 % Platelet Count 489 10^3/UL Mean Platelet Volume 9.9 fl Immature Granulocytes % 0.500 % Neutrophils % 82.6 % Lymphocytes % 11.3 % Monocytes % 5.1 % Eosinophils % 0.1 % Basophils % 0.4 % Nucleated Red Blood Cells % 0.0 /100WBC Immature Granulocytes # 0.070 10^3/ul Neutrophils # 11.5 10^3/ul Lymphocytes # 1.6 10^3/ul Monocytes # 0.7 10^3/ul Eosinophils # 0.0 10^3/ul Basophils # 0.1 10^3/ul Nucleated Red Blood Cells # 0.0 10^3/ul Sodium Level 139 mmol/L Potassium Level 5.2 mmol/L Chloride Level 98 mmol/L Carbon Dioxide Level 25 mmol/L Anion Gap 16 Blood Urea Nitrogen 27 mg/dl Creatinine 1.74 mg/dl Est Glomerular Filtrat 33 mL/min Rate mL/min Glucose Level 237 mg/dl Calcium Level 10.9 mg/dl Total Bilirubin 0.4 mg/dl Direct Bilirubin 0.00 mg/dl Indirect Bilirubin 0.4 mg/dl Aspartate Amino 17 IU/L Transf (AST/SGOT) Alanine 12 IU/L Aminotransferase (ALT/SGPT) Alkaline Phosphatase 130 IU/L Total Protein 8.8 g/dl Albumin 4.6 g/dl Globulin 4.20 g/dl Albumin/Globulin Ratio 1.09 Urine Color YELLOW Urine Clarity TURBID Urine pH 5.0 Urine Specific [place] 1.013 Urine Ketones NEGATIVE mg/dL Urine Nitrite NEGATIVE mg/dL Urine Bilirubin NEGATIVE mg/dL Urine Urobilinogen NEGATIVE mg/dL Urine Leukocyte Esterase 3+ Kamla/ul Urine Microscopic RBC 8 /HPF Urine Microscopic WBC > 182 /HPF Urine Squamous Epithelial Cells MANY /HPF Urine Bacteria FEW /HPF Urine Mucus FEW /HPF Urine Hemoglobin 1+ mg/dL Urine Glucose 3+ mg/dL Urine Total Protein 1+ mg/dl POC Venous Lactate 2.1 mmol/L Current Medications Medications Dose Sig/Mathew Start Time Status Last (Trade) Ordered Route PRN Stop Time Admin Dose Reason Admin Sodium 1,000 ml @ Q1H STAT 07/13/18 DC 07/13/18 Chloride 1,000 mls/hr IV 10:11 10:20 07/13/18 11:10 150 ml @ ONCE ONCE 07/13/18 07/13/18 Levofloxacin/ 100 mls/hr IVPB 11:30 11:47 Dextrose 07/13/18 12:59 Sodium 1,000 ml @ Q1H ONCE 07/13/18 07/13/18 Chloride 1,000 mls/hr IV 11:30 11:44 07/13/18 12:29 Procedures/MDM Patient was taken to a room, seen and evaluated. Comfort measures were initiated. Diagnostic tests were ordered and reviewed. 3 LEAD RHYTHM STRIP: Normal sinus rhythm without ectopy EK lead EKG reviewed by myself: Normal Sinus Rhythm Normal [place] and intervals No ST elevation, depression, or T wave inversion Impression: Normal EKG RADIOLOGY: Reviewed with the radiologist CONSULTATION: Hospitalist was notified for admission REEVALUATION: 1210: Initial diagnostic tests were appreciated. During her stay in the emergency department her blood pressure did have an episode of being low but she responded to IV fluids nicely. MEDICAL DECISION MAKIN-year-old female with a history of diabetes as well as psychiatric disease presents the emergency department with nonspecific generalized symptoms. A complete diagnostic workup was initiated secondary to her slight tachycardia and low blood pressure. Her diagnostic workup seems to indicate that she has a urinary tract infection with a sepsis complicated by her diabetes and dehydration. She is responding nicely to IV fluids and will require admission to the hospital for ongoing hydration and antibiotics as well as supportive care. Sepsis Documentation: SEVERE SEPSIS CRITERIA: Infectious source: Urinary tract infection End organ damage indicated by: SEPSIS MANAGEMENT Time of recognition of sepsis: 1130 Time of recognition of severe sepsis: 1130 Time of recognition of septic shock: No septic shock at this time. 3 HOUR BUNDLE Blood cultures x 2 before broad-spectrum antibiotics: Yes 30 ml/kg NS bolus ongoing Initial lactate noted to be elevated Repeat lactate pending SEPTIC SHOCK ASSESSMENT: No lactic acid > 4.0 No persistent hypotension (SBP < 90 or 40 mmHg drop, MAP < 65) despite 30 mL/kg IV fluid bolus VOLUME REASSESSMENT FOR SEPTIC SHOCK: Reevaluation Time: 1210 Vital signs noted per nursing note Heart regular rate & rhythm Lungs no crackles Skin warm & dry Cap Refill less than 2 seconds Peripheral pulses radially present CRITICAL CARE Critical care time 35 minutes Emergent fluid management while maintaining close respiratory support. Provision of immediate and broad-spectrum antibiotic therapy. Simultaneous assessment for possible sources in order to direct targeted therapy. Consideration for invasive and chemical support to prevent cardiopulmonary collapse. Critical care time is independent of procedures performed. Departure Diagnosis: Primary Impression: UTI (urinary tract infection) Additional Impressions: Sepsis Dehydration GT RODRIGUEZ Jul 13, 2018 12:13
--- NOTE | 2018-07-13 13:56 | HP ---
Date/Time of Note Date/Time of Note DATE: 07/13/18 TIME: 13:54 Assessment/Plan VTE Prophylaxis SCD applied (from Nsg): Yes Pharmacological prophylaxis: NA/contraindicated Pharm contraindication: low risk/ambulating Lines/Catheters IV Catheter Type (from Nrsg): Saline Lock Assessment/Plan Hospital Course A 3-year-old female who presents with fever and chills admitted and managed for the following: Sepsis 2/2 UTI HYpotension, impending shock DM 2 HLD GODWIN: R/O CKD Migraine headaches Chronic psychiatric disorder plan: admit tele, low threshold for ICU for pressors abx blood and urine cultures Continue all other home medications as clinically safe, renally dose all drugs for now, will get renal ultrasound, continue fluid hydration. Consider nephrology consultation if no improvement Diabetic diet, sliding scale insulin, titrate medications as indicated Further interventions per clinical course Of note is that patient would desire to be discharged before as it is her daughter's birthday, but unfortunately it is unlikely that the patient will be able to be discharged. I did let her know that. Result Diagram: 07/13/18 1019 07/13/18 1019 Results 24hrs Laboratory Tests Test 07/13/18 10:19 07/13/18 10:44 07/13/18 11:32 White Blood Count 13.9 #H Red Blood Count 3.87 L Hemoglobin 10.8 L Hematocrit 33.9 L Mean Corpuscular Volume 87.6 Mean Corpuscular Hemoglobin 27.9 L Mean Corpuscular Hemoglobin Concent 31.9 L Red Cell Distribution Width 14.7 H Platelet Count 489 #H Mean Platelet Volume 9.9 Immature Granulocytes % 0.500 H Neutrophils % 82.6 H Lymphocytes % 11.3 L Monocytes % 5.1 Eosinophils % 0.1 Basophils % 0.4 Nucleated Red Blood Cells % 0.0 Immature Granulocytes # 0.070 H Neutrophils # 11.5 H Lymphocytes # 1.6 Monocytes # 0.7 Eosinophils # 0.0 Basophils # 0.1 Nucleated Red Blood Cells # 0.0 Sodium Level 139 Potassium Level 5.2 H Chloride Level 98 Carbon Dioxide Level 25 Anion Gap 16 H Blood Urea Nitrogen 27 H Creatinine 1.74 H Est Glomerular Filtrat Rate mL/min 33 L Glucose Level 237 H Calcium Level 10.9 H Total Bilirubin 0.4 Direct Bilirubin 0.00 Indirect Bilirubin 0.4 Aspartate Amino Transf (AST/SGOT) 17 Alanine Aminotransferase (ALT/SGPT) 12 L Alkaline Phosphatase 130 H Total Protein 8.8 H Albumin 4.6 Globulin 4.20 H Albumin/Globulin Ratio 1.09 Urine Color YELLOW Urine Clarity TURBID A Urine pH 5.0 Urine Specific [place] 1.013 Urine Ketones NEGATIVE Urine Nitrite NEGATIVE Urine Bilirubin NEGATIVE Urine Urobilinogen NEGATIVE Urine Leukocyte Esterase 3+ H Urine Microscopic RBC 8 H Urine Microscopic WBC > 182 H Urine Squamous Epithelial Cells MANY A Urine Bacteria FEW A Urine Mucus FEW A Urine Hemoglobin 1+ H Urine Glucose 3+ H Urine Total Protein 1+ H POC Venous Lactate 2.1 *H HPI/ROS Admit Date/Time Admit Date/Time Hx of Present Illness Pleasant 33 yo F with a hx of HTN , DM, HLD who presents to the ER with a one day hx of Fever and chills. Patient interestingly has no other significant symptoms. She denies headaches, denies passing out episodes, denies weakness or extremity numbness. Denies neck pain, denies chest pain, cough or runny nose, denies shortness of breath. She denies abdominal pain, has had a little bit of nausea, but denies vomiting, also denies dysuria or hematuria. There is also no joint swelling or deformity. However in the emergency room she was found to have a very abnormal urinalysis highly suggestive of a urinary infection, she is also hypotensive requiring fluid resuscitation. She is being admitted for sepsis secondary to UTI with impending septic shock. ROS 12 point review if systems was done and pertinent findings are as noted. PMH/Family/Social Past Medical History Chronic migraine headaches Chronic psychiatric disorder Medical History: diabetes, high cholesterol, hypertension Medications Current Medications Sodium Chloride 1,000 ml @ 1,000 mls/hr Q1H ONCE IV ; Start 07/13/18 at 13:30; Stop 07/13/18 at 14:29 Coded Allergies: Penicillins (Verified Allergy, Unknown, 07/13/18) Past Surgical History Past Surgical Hx: appendectomy, other ( section) Family History Significant Family History: diabetes Social History Alcohol Use: none Smoking Status: Never smoker Drug Use: none Exam/Review of Systems Vital Signs Vitals Vital Signs Date Temp Pulse Resp B/P (MAP) Pulse Ox O2 O2 Flow FiO2 Time Delivery Rate 07/13/18 99 18 97/49 (65) 100 Room Air 13:34 4/10/19 96.9 12:31 Exam Exam General: A&O x3, answering questions appropriately, acutely ill looking HEENT: NC/ AT. PERRL. EOM intact Neck: supple CVS: S1, S2, RRR. no murmurs. no pain on chest wall palpation Lungs: CTA b/l. no wheezing or rhonchi Abd: soft, nontender, +BS Ext: moving all extremities skin: no rashes Additional Comments PROCEDURE: XR Chest AP portable CLINICAL INDICATION: Abdominal pain TECHNIQUE: An AP portable radiograph of the chest was submitted. COMPARISON: None. FINDINGS: Support Hardware: None Cardiovascular: The cardiovascular silhouette appears unremarkable. Lung Hein: The lung hein appear clear with no nodule, alveolar infiltrate, or interstitial prominence evident. Pleural Spaces: No pneumothorax or pleural effusion is identified. Osseous Structures: The osseous structures appear intact. Soft Tissues: The soft tissues appear unremarkable. IMPRESSION: Unremarkable portable chest. Physician Ricardo Date Time Electronically viewed and signed by Lawrence Freeman Physician on 07/13/2018 10:30 RH/ CC: GT RODRIGUEZ [id number] GADIEL HERNÁNDEZ Jul 13, 2018 13:55
[2018-07-13] MEDS ORDERED: ALBUMIN HUMAN 25% 100 ML IV ONE (14:00)
[2018-07-13] MEDS ORDERED: ACETAMINOPHEN 325 MG TAB PO PRN (16:00)
[2018-07-13] MEDS ORDERED: ACETAMINOPHEN 325 MG TAB ONE (16:06)
[2018-07-13 16:30] VITALS: BP 111/67; PULSE 119; RESP 20
[2018-07-13 16:51] VITALS: Ht 162.6 cm; Wt 73.0 kg
[2018-07-13] MEDS: SOD CHLORIDE 0.9% 1,000 ML IV SCH ×2 (17:11→22:00)
[2018-07-13] MEDS: CEFTRIAXONE 1 GM/50 ML (PMX) 50 ML IVPB SCH (17:11)
[2018-07-13] MEDS: INSULIN ASPART [NOVOLOG] 3 ML PEN SC SCH ×3 (17:20→20:27)
[2018-07-13] MEDS ORDERED: GLUCOSE GEL 15 GRAM TUBE PO PRN ×2 (17:30)
[2018-07-13] MEDS ORDERED: DEXTROSE 50% 50 ML SYRINGE IV PRN ×2 (17:30)
[2018-07-13] MEDS ORDERED: GLUCAGON 1 MG INJ IM PRN (17:30)
[2018-07-13] MEDS ORDERED: GLUCOSE GEL 15 GRAM TUBE BUCCAL PRN (17:30)
[2018-07-13 18:43] VITALS: PULSE 110
[2018-07-13 20:00] VITALS: PULSE 90
[2018-07-13 20:24] VITALS: BP 99/60; PULSE 92; RESP 20
[2018-07-13] MEDS: GABAPENTIN 300 MG CAP PO SCH (20:29)
[2018-07-13] MEDS: BENZTROPINE 1 MG TAB PO SCH (20:29)
[2018-07-13] MEDS: GEMFIBROZIL 600 MG TAB PO SCH (20:29)
[2018-07-13] MEDS: HALOPERIDOL 5 MG TAB PO SCH (20:29)
[2018-07-13] MEDS: INSULIN GLARGINE [LANTus] (100 UNITS/ML) SYG SC SCH (20:31)
[2018-07-14] VITALS (11 sets, daily range): BP systolic 96–103; BP diastolic 56–67; PULSE 52–118; RESP 18–20
[2018-07-14] MEDS: ACCU-CHEK XX SCH (02:00)
[2018-07-14] MEDS: SUMATRIPTAN 50 MG TAB PO PRN ×2 (02:42→20:31)
[2018-07-14] MEDS: SOD CHLORIDE 0.9% 1,000 ML IV SCH ×3 (05:29→20:38)
[2018-07-14] MEDS: PANTOPRAZOLE (EC) 40 MG TAB PO SCH (05:29)
[2018-07-14] MEDS: INSULIN ASPART [NOVOLOG] 3 ML PEN SC SCH ×7 (07:55→20:37)
[2018-07-14] MEDS: DOCUSATE SODIUM 100 MG CAP PO SCH (08:52)
[2018-07-14] MEDS: FERROUS SULFATE (EC) 325 MG TAB PO SCH (08:52)
[2018-07-14] MEDS: GABAPENTIN 300 MG CAP PO SCH ×2 (08:52→20:16)
[2018-07-14] MEDS: HALOPERIDOL 5 MG TAB PO SCH ×2 (08:52→20:16)
[2018-07-14] MEDS: BENZTROPINE 1 MG TAB PO SCH ×2 (08:52→20:16)
[2018-07-14] MEDS: GEMFIBROZIL 600 MG TAB PO SCH ×2 (08:52→20:16)
[2018-07-14] MEDS ORDERED: NON-FORMULARY/PATIENT OWN MED (Omeprazole* 20 MG) PO SCH (09:00)
[2018-07-14] MEDS: CEFTRIAXONE 1 GM/50 ML (PMX) 50 ML IVPB SCH (13:38)
--- NOTE | 2018-07-14 15:05 | PN ---
Date/Time of Note Date/Time of Note DATE: 07/14/18 TIME: 14:58 Assessment/Plan VTE Prophylaxis Risk score (from Nsg)>0 risk: 1 SCD applied (from Nsg): Yes Pharmacological prophylaxis: other Lines/Catheters IV Catheter Type (from Nrsg): Peripheral IV Urinary Cath still in place: No Assessment/Plan Hospital Course S: Patient had no acute events overnight including no fevers. Per nursing staff tolerating diet. O: Vs - see below PE: HEENT: NC/ AT. PERRL. EOM intact Neck: supple CVS: S1, S2, RRR. no murmurs. no pain on chest wall palpation Lungs: CTA b/l. no wheezing or rhonchi Abd: soft, nontender, +BS Ext: moving all extremities skin: no rashes A/P: 33-year-old female who presents with: # sepsis 2/2 UTI and bacteremia-no fevers for the last 24 hours, UA positive, and preliminary blood culture results show gram-negative rods. Blood pressure is improved -Based on patient's allergies, change antibiotics to aztreonam twice daily, continue aggressive IV fluid hydration -Tylenol PRN pain and fevers, follow final culture results -Replete low electrolytes # DM 2 -sugars are stable, A1c results are pending -Continue current insulin regimen # HLD -continue Lopid for now # GODWIN: Improving with IV fluid hydration -Monitor for now Result Diagram: 07/14/18 0647 07/14/18 0647 Results 24hrs Laboratory Tests Test 07/13/18 17:19 07/13/18 20:27 07/14/18 06:47 07/14/18 07:57 Bedside Glucose 131 111 128 White Blood Count 10.9 #H Red Blood Count 3.67 L Hemoglobin 10.1 L Hematocrit 31.5 L Mean Corpuscular 85.8 Volume Mean Corpuscular 27.5 L Hemoglobin Mean Corpuscular 32.1 Hemoglobin Concent Red Cell 14.6 H Distribution Width Platelet Count 413 Mean Platelet Volume 9.9 Immature 0.600 H Granulocytes % Neutrophils % 74.5 Lymphocytes % 16.1 Monocytes % 8.0 Eosinophils % 0.7 Basophils % 0.1 Nucleated Red Blood 0.0 Cells % Immature 0.060 H Granulocytes # Neutrophils # 8.1 H Lymphocytes # 1.8 Monocytes # 0.9 Eosinophils # 0.1 Basophils # 0.0 Nucleated Red Blood 0.0 Cells # Sodium Level 140 Potassium Level 4.7 Chloride Level 101 Carbon Dioxide Level 21 Anion Gap 18 H Blood Urea Nitrogen 16 # Creatinine 0.82 Est Glomerular > 60 Filtrat Rate mL/min Glucose Level 115 # Lactic Acid Level 0.9 Calcium Level 10.3 H Phosphorus Level 4.2 Magnesium Level 1.6 L Test 07/14/18 11:41 Bedside Glucose 128 Exam/Review of Systems Exam Vitals Vital Signs Date Temp Pulse Resp B/P (MAP) Pulse Ox O2 O2 Flow FiO2 Time Delivery Rate 07/14/18 91 13:30 07/14/18 98.1 18 96/58 (71) 95 11:11 07/14/18 Room Air 04:35 Intake and Output 07/13/18 07/13/18 07/14/18 1515:00 23:00 07:00 IntakeIntake Total 3600 ml 1900 ml BalanceBalance 3600 ml 1900 ml Results Results 24hrs Laboratory Tests Test 07/13/18 17:19 07/13/18 20:27 07/14/18 06:47 07/14/18 07:57 Bedside Glucose 131 111 128 White Blood Count 10.9 #H Red Blood Count 3.67 L Hemoglobin 10.1 L Hematocrit 31.5 L Mean Corpuscular 85.8 Volume Mean Corpuscular 27.5 L Hemoglobin Mean Corpuscular 32.1 Hemoglobin Concent Red Cell 14.6 H Distribution Width Platelet Count 413 Mean Platelet Volume 9.9 Immature 0.600 H Granulocytes % Neutrophils % 74.5 Lymphocytes % 16.1 Monocytes % 8.0 Eosinophils % 0.7 Basophils % 0.1 Nucleated Red Blood 0.0 Cells % Immature 0.060 H Granulocytes # Neutrophils # 8.1 H Lymphocytes # 1.8 Monocytes # 0.9 Eosinophils # 0.1 Basophils # 0.0 Nucleated Red Blood 0.0 Cells # Sodium Level 140 Potassium Level 4.7 Chloride Level 101 Carbon Dioxide Level 21 Anion Gap 18 H Blood Urea Nitrogen 16 # Creatinine 0.82 Est Glomerular > 60 Filtrat Rate mL/min Glucose Level 115 # Lactic Acid Level 0.9 Calcium Level 10.3 H Phosphorus Level 4.2 Magnesium Level 1.6 L Test 07/14/18 11:41 Bedside Glucose 128 Medications Medication Current Medications Ceftriaxone Sodium 50 ml @ 100 mls/hr Q24H IVPB Last administered on 07/14/18 13:38; Admin Dose 100 MLS/HR; Start 07/13/18 at 14:00 Sodium Chloride 1,000 ml @ 125 mls/hr Q8H IV Last administered on 07/14/18 13:41; Admin Dose 125 MLS/HR; Start 07/13/18 at 14:00 Diagnostic Test (Pha) (Accu-Chek) 1 ea 02 XX ; Start 07/14/18 at 02:00 Insulin Glargine (Lantus) 15 units DAILY@2000 SC Last administered on 07/13/18 20:31; Admin Dose 15 UNITS; Start 07/13/18 at 20:00 Insulin Aspart (Novolog Insulin Pen) 5 unit WITH MEALS SC Last administered on 07/14/18 11:47; Admin Dose 5 UNIT; Start 07/13/18 at 18:30 Insulin Aspart (Novolog Insulin Pen) NOVOLOG *MILD* ALGORITHM WITH MEALS BEDTIME SC ; Start 07/13/18 at 18:30 Benztropine Mesylate (Cogentin) 2 mg BID PO Last administered on 07/14/18 08:52; Admin Dose 2 MG; Start 07/13/18 at 21:00 Docusate Sodium (Colace) 100 mg DAILY PO Last administered on 07/14/18 08:52; Admin Dose 100 MG; Start 07/14/18 at 09:00 Ferrous Sulfate (Ferrous Sulfate (Ec)) 325 mg DAILY PO Last administered on 07/14/18 08:52; Admin Dose 325 MG; Start 07/14/18 at 09:00 Gabapentin (Neurontin) 300 mg BID PO Last administered on 07/14/18 08:52; Admin Dose 300 MG; Start 07/13/18 at 21:00 Gemfibrozil (Lopid) 600 mg BID PO Last administered on 07/14/18 08:52; Admin Dose 600 MG; Start 07/13/18 at 21:00 Haloperidol (Haldol) 5 mg BID PO Last administered on 07/14/18 08:52; Admin Dose 5 MG; Start 07/13/18 at 21:00 Sumatriptan Succinate (Imitrex) 100 mg DAILY PRN PO MIGRAINE HEADACHE Last administered on 07/14/18 02:42; Admin Dose 100 MG; Start 07/13/18 at 14:00 Acetaminophen (Tylenol Tab) 650 mg Q6H PRN PO FEVER; Start 07/13/18 at 16:00 Miscellaneous Information 1 ea NOTE XX ; Start 07/13/18 at 17:30 Glucose (Glutose) 15 gm Q15M PRN PO DECREASED GLUCOSE; Start 07/13/18 at 17:30 Glucose (Glutose) 22.5 gm Q15M PRN PO DECREASED GLUCOSE; Start 07/13/18 at 17:30 Dextrose (D50w Syringe) 25 ml Q15M PRN IV DECREASED GLUCOSE; Start 07/13/18 at 17:30 Dextrose (D50w Syringe) 50 ml Q15M PRN IV DECREASED GLUCOSE; Start 07/13/18 at 17:30 Glucagon (Glucagen) 1 mg Q15M PRN IM DECREASED GLUCOSE; Start 07/13/18 at 17:30 Glucose (Glutose) 15 gm Q15M PRN BUCCAL DECREASED GLUCOSE; Start 07/13/18 at 17:30 Pantoprazole (Protonix Tab) 40 mg DAILY@06 PO Last administered on 07/14/18at 05:29; Admin Dose 40 MG; Start 07/14/18 at 06:00 RUSSEL WATTS Jul 14, 2018 15:05
[2018-07-14] MEDS: AZTREONAM 1 GM/NS (PMX) 50 ML IVPB SCH (15:47)
[2018-07-14] MEDS ORDERED: MAGNESIUM SULFATE 1 GM/D5W 100 ML IVPB ONE (16:30)
[2018-07-14] MEDS: INSULIN GLARGINE [LANTus] (100 UNITS/ML) SYG SC SCH (20:37)
[2018-07-15] VITALS (11 sets, daily range): BP systolic 89–104; BP diastolic 54–91; PULSE 62–102; RESP 18–20
[2018-07-15] MEDS: SOD CHLORIDE 0.9% 1,000 ML IV SCH ×3 (00:08→20:03)
[2018-07-15] MEDS: AZTREONAM 1 GM/NS (PMX) 50 ML IVPB SCH ×3 (00:08→20:03)
[2018-07-15] MEDS: ACCU-CHEK XX SCH (01:56)
[2018-07-15] MEDS: PANTOPRAZOLE (EC) 40 MG TAB PO SCH (05:12)
[2018-07-15] MEDS: INSULIN ASPART [NOVOLOG] 3 ML PEN SC SCH ×7 (07:55→20:25)
[2018-07-15] MEDS: GABAPENTIN 300 MG CAP PO SCH ×2 (08:22→20:07)
[2018-07-15] MEDS: GEMFIBROZIL 600 MG TAB PO SCH ×2 (08:22→20:07)
[2018-07-15] MEDS: DOCUSATE SODIUM 100 MG CAP PO SCH (08:23)
[2018-07-15] MEDS: BENZTROPINE 1 MG TAB PO SCH ×2 (08:23→20:07)
[2018-07-15] MEDS: HALOPERIDOL 5 MG TAB PO SCH ×2 (08:23→20:07)
[2018-07-15] MEDS: FERROUS SULFATE (EC) 325 MG TAB PO SCH (08:23)
--- NOTE | 2018-07-15 11:43 | PN ---
Date/Time of Note Date/Time of Note DATE: 07/15/18 TIME: 11:39 Assessment/Plan VTE Prophylaxis Risk score (from Nsg)>0 risk: 0 SCD applied (from Nsg): Yes Pharmacological prophylaxis: other Lines/Catheters IV Catheter Type (from Nrsg): Peripheral IV Urinary Cath still in place: No Assessment/Plan Hospital Course S: Patient patient overall has less weakness symptoms. Tolerating diet. Still some occasional chills. No fevers noted overnight. O: Vs - see below PE: HEENT: NC/ AT. PERRL. EOM intact Neck: supple CVS: S1, S2, RRR. no murmurs. no pain on chest wall palpation Lungs: CTA b/l. no wheezing or rhonchi Abd: soft, nontender, +BS Ext: moving all extremities skin: no rashes A/P: 33-year-old female who presents with: # sepsis 2/2 UTI and bacteremia-improving overall, no fevers for the last 48 hours since admission. Again, UA positive, and preliminary blood culture results show Aeromonas species. Blood pressure stable. -For now continue aztreonam twice daily, continue IV fluid hydration -Tylenol PRN pain and fevers, follow final culture results including urine and second blood culture -Replete low electrolytes as needed # DM 2 - A1c equals 6.5. Sugars are stable. -Continue current insulin regimen # HLD -continue Lopid for now # GODWIN: Resolved now with IV fluid hydration -Monitor for now Result Diagram: 07/15/18 0601 07/15/18 0601 Results 24hrs Laboratory Tests Test 07/14/18 11:41 07/14/18 17:21 07/14/18 20:14 07/15/18 01:46 Bedside Glucose 128 157 213 141 Test 07/15/18 06:01 07/15/18 08:08 07/15/18 11:11 White Blood Count 8.3 # Red Blood Count 3.47 L Hemoglobin 9.6 L Hematocrit 30.3 L Mean Corpuscular 87.3 Volume Mean Corpuscular 27.7 L Hemoglobin Mean Corpuscular 31.7 L Hemoglobin Concent Red Cell 14.2 Distribution Width Platelet Count 413 Mean Platelet Volume 10.2 Immature 0.600 H Granulocytes % Neutrophils % 69.5 Lymphocytes % 20.6 Monocytes % 7.0 Eosinophils % 1.9 Basophils % 0.4 Nucleated Red Blood 0.0 Cells % Immature 0.050 H Granulocytes # Neutrophils # 5.8 Lymphocytes # 1.7 Monocytes # 0.6 Eosinophils # 0.2 Basophils # 0.0 Nucleated Red Blood 0.0 Cells # Sodium Level 142 Potassium Level 4.1 Chloride Level 104 Carbon Dioxide Level 23 Anion Gap 15 H Blood Urea Nitrogen 14 Creatinine 0.72 Est Glomerular > 60 Filtrat Rate mL/min Glucose Level 145 Calcium Level 10.1 Phosphorus Level 5.1 H Magnesium Level 1.8 Bedside Glucose 120 136 Exam/Review of Systems Exam Vitals Vital Signs Date Temp Pulse Resp B/P (MAP) Pulse Ox O2 O2 Flow FiO2 Time Delivery Rate 07/15/18 70 08:36 07/15/18 97.2 20 102/57 96 08:09 (72) 07/15/18 Room Air 04:00 Intake and Output 07/14/18 07/14/18 07/15/18 1515:00 23:00 07:00 IntakeIntake Total 650 ml 1350 ml BalanceBalance 650 ml 1350 ml Results Results 24hrs Laboratory Tests Test 07/14/18 11:41 07/14/18 17:21 07/14/18 20:14 07/15/18 01:46 Bedside Glucose 128 157 213 141 Test 07/15/18 06:01 07/15/18 08:08 07/15/18 11:11 White Blood Count 8.3 # Red Blood Count 3.47 L Hemoglobin 9.6 L Hematocrit 30.3 L Mean Corpuscular 87.3 Volume Mean Corpuscular 27.7 L Hemoglobin Mean Corpuscular 31.7 L Hemoglobin Concent Red Cell 14.2 Distribution Width Platelet Count 413 Mean Platelet Volume 10.2 Immature 0.600 H Granulocytes % Neutrophils % 69.5 Lymphocytes % 20.6 Monocytes % 7.0 Eosinophils % 1.9 Basophils % 0.4 Nucleated Red Blood 0.0 Cells % Immature 0.050 H Granulocytes # Neutrophils # 5.8 Lymphocytes # 1.7 Monocytes # 0.6 Eosinophils # 0.2 Basophils # 0.0 Nucleated Red Blood 0.0 Cells # Sodium Level 142 Potassium Level 4.1 Chloride Level 104 Carbon Dioxide Level 23 Anion Gap 15 H Blood Urea Nitrogen 14 Creatinine 0.72 Est Glomerular > 60 Filtrat Rate mL/min Glucose Level 145 Calcium Level 10.1 Phosphorus Level 5.1 H Magnesium Level 1.8 Bedside Glucose 120 136 Medications Medication Current Medications Sodium Chloride 1,000 ml @ 125 mls/hr Q8H IV Last administered on 07/15/18 10:54; Admin Dose 125 MLS/HR; Start 07/13/18 at 14:00 Diagnostic Test (Pha) (Accu-Chek) 1 ea 02 XX ; Start 07/14/18 at 02:00 Insulin Glargine (Lantus) 15 units DAILY@2000 SC Last administered on 07/14/18 20:37; Admin Dose 15 UNITS; Start 07/13/18 at 20:00 Insulin Aspart (Novolog Insulin Pen) 5 unit WITH MEALS SC Last administered on 07/15/18 11:17; Admin Dose 5 UNIT; Start 07/13/18 at 18:30 Insulin Aspart (Novolog Insulin Pen) NOVOLOG *MILD* ALGORITHM WITH MEALS BEDTIME SC Last administered on 07/14/18 20:37; Admin Dose 1 UNIT; Start 07/13/18 at 18:30 Benztropine Mesylate (Cogentin) 2 mg BID PO Last administered on 07/15/18 08:23; Admin Dose 2 MG; Start 07/13/18 at 21:00 Docusate Sodium (Colace) 100 mg DAILY PO Last administered on 07/15/18 08:23; Admin Dose 100 MG; Start 07/14/18 at 09:00 Ferrous Sulfate (Ferrous Sulfate (Ec)) 325 mg DAILY PO Last administered on 07/15/18 08:23; Admin Dose 325 MG; Start 07/14/18 at 09:00 Gabapentin (Neurontin) 300 mg BID PO Last administered on 07/15/18 08:22; Admin Dose 300 MG; Start 07/13/18 at 21:00 Gemfibrozil (Lopid) 600 mg BID PO Last administered on 07/15/18 08:22; Admin Dose 600 MG; Start 07/13/18 at 21:00 Haloperidol (Haldol) 5 mg BID PO Last administered on 07/15/18 08:23; Admin Dose 5 MG; Start 07/13/18 at 21:00 Sumatriptan Succinate (Imitrex) 100 mg DAILY PRN PO MIGRAINE HEADACHE Last administered on 07/14/18 20:31; Admin Dose 100 MG; Start 07/13/18 at 14:00 Acetaminophen (Tylenol Tab) 650 mg Q6H PRN PO FEVER; Start 07/13/18 at 16:00 Miscellaneous Information 1 ea NOTE XX ; Start 07/13/18 at 17:30 Glucose (Glutose) 15 gm Q15M PRN PO DECREASED GLUCOSE; Start 07/13/18 at 17:30 Glucose (Glutose) 22.5 gm Q15M PRN PO DECREASED GLUCOSE; Start 07/13/18 at 17:30 Dextrose (D50w Syringe) 25 ml Q15M PRN IV DECREASED GLUCOSE; Start 07/13/18 at 17:30 Dextrose (D50w Syringe) 50 ml Q15M PRN IV DECREASED GLUCOSE; Start 07/13/18 at 17:30 Glucagon (Glucagen) 1 mg Q15M PRN IM DECREASED GLUCOSE; Start 07/13/18 at 17:30 Glucose (Glutose) 15 gm Q15M PRN BUCCAL DECREASED GLUCOSE; Start 07/13/18 at 17:30 Pantoprazole (Protonix Tab) 40 mg DAILY@06 PO Last administered on 07/15/18at 05:12; Admin Dose 40 MG; Start 07/14/18 at 06:00 Aztreonam 50 ml @ 100 mls/hr Q12 IVPB Last administered on 07/15/18at 08:22; Admin Dose 100 MLS/HR; Start 07/14/18 at 16:00 RUSSEL WATTS Jul 15, 2018 11:43
[2018-07-15] MEDS: INSULIN GLARGINE [LANTus] (100 UNITS/ML) SYG SC SCH (20:24)
[2018-07-16] VITALS (9 sets, daily range): BP systolic 90–108; BP diastolic 56–73; PULSE 73–91; RESP 18–20
[2018-07-16] MEDS: SUMATRIPTAN 50 MG TAB PO PRN (00:18)
[2018-07-16] MEDS: ACCU-CHEK XX SCH (01:22)
[2018-07-16] MEDS: SOD CHLORIDE 0.9% 1,000 ML IV SCH ×3 (06:00→21:32)
[2018-07-16] MEDS: PANTOPRAZOLE (EC) 40 MG TAB PO SCH (06:00)
[2018-07-16] MEDS: INSULIN ASPART [NOVOLOG] 3 ML PEN SC SCH ×7 (07:41→21:00)
[2018-07-16] MEDS: AZTREONAM 1 GM/NS (PMX) 50 ML IVPB SCH ×2 (08:32→21:32)
[2018-07-16] MEDS: HALOPERIDOL 5 MG TAB PO SCH ×2 (08:32→20:24)
[2018-07-16] MEDS: GEMFIBROZIL 600 MG TAB PO SCH ×2 (08:32→20:24)
[2018-07-16] MEDS: FERROUS SULFATE (EC) 325 MG TAB PO SCH (08:32)
[2018-07-16] MEDS: GABAPENTIN 300 MG CAP PO SCH ×2 (08:32→20:24)
[2018-07-16] MEDS: DOCUSATE SODIUM 100 MG CAP PO SCH (08:33)
[2018-07-16] MEDS: BENZTROPINE 1 MG TAB PO SCH ×2 (08:33→20:24)
--- NOTE | 2018-07-16 10:54 | PN ---
Date/Time of Note Date/Time of Note DATE: 07/16/18 TIME: 10:53 Assessment/Plan VTE Prophylaxis Risk score (from Ns)>0 risk: 1 SCD applied (from Ns): Yes Pharmacological prophylaxis: other Lines/Catheters IV Catheter Type (from Nrs): Peripheral IV Urinary Cath still in place: No Assessment/Plan Hospital Course S: Patient had no acute events overnight. O: Vs - see below PE: HEENT: NC/ AT. PERRL. EOM intact Neck: supple CVS: S1, S2, RRR. no murmurs. no pain on chest wall palpation Lungs: CTA b/l. no wheezing or rhonchi Abd: soft, nontender, +BS Ext: moving all extremities skin: no rashes A/P: 33-year-old female who presents with: # sepsis 2/2 UTI and bacteremia-improving overall, no fevers for the last 48 hours since admission. Again, UA positive, and preliminary blood culture results show Aeromonas species. Blood pressure stable. - continue aztreonam twice daily, continue IV fluid hydration -Tylenol PRN pain and fevers, follow final culture results including urine and second blood culture -final results still pending. -Replete low electrolytes as needed # DM 2 - A1c equals 6.5. Sugars are stable. -Continue current insulin regimen # HLD -continue Lopid for now # GODWIN: Resolved now with IV fluid hydration -Monitor for now Result Diagram: 07/16/18 0609 07/16/18 0609 Results 24hrs Laboratory Tests Test 07/15/18 11:11 07/15/18 16:46 07/15/18 20:12 07/16/18 01:28 Bedside Glucose 136 111 182 131 Test 07/16/18 06:09 07/16/18 07:40 White Blood Count 8.0 Red Blood Count 3.81 L Hemoglobin 10.4 L Hematocrit 33.1 L Mean Corpuscular 86.9 Volume Mean Corpuscular 27.3 L Hemoglobin Mean Corpuscular 31.4 L Hemoglobin Concent Red Cell 13.9 Distribution Width Platelet Count 452 H Mean Platelet Volume 10.3 Immature 0.400 Granulocytes % Neutrophils % 63.2 Lymphocytes % 28.3 Monocytes % 5.9 Eosinophils % 1.8 Basophils % 0.4 Nucleated Red Blood 0.0 Cells % Immature 0.030 Granulocytes # Neutrophils # 5.0 Lymphocytes # 2.3 Monocytes # 0.5 Eosinophils # 0.1 Basophils # 0.0 Nucleated Red Blood 0.0 Cells # Sodium Level 144 Potassium Level 4.0 Chloride Level 106 Carbon Dioxide Level 26 Anion Gap 12 Blood Urea Nitrogen 16 Creatinine 0.75 Est Glomerular > 60 Filtrat Rate mL/min Glucose Level 155 Calcium Level 10.3 H Bedside Glucose 130 Exam/Review of Systems Exam Vitals Vital Signs Date Temp Pulse Resp B/P (MAP) Pulse Ox O2 O2 Flow FiO2 Time Delivery Rate 07/16/18 73 08:05 07/16/18 97.5 20 101/59 98 07:22 (73) 07/16/18 Room Air 04:00 Intake and Output 07/15/18 07/15/18 07/16/18 1515:00 23:00 07:00 IntakeIntake Total 2050 ml 1800 ml BalanceBalance 2050 ml 1800 ml Results Results 24hrs Laboratory Tests Test 07/15/18 11:11 07/15/18 16:46 07/15/18 20:12 07/16/18 01:28 Bedside Glucose 136 111 182 131 Test 07/16/18 06:09 07/16/18 07:40 White Blood Count 8.0 Red Blood Count 3.81 L Hemoglobin 10.4 L Hematocrit 33.1 L Mean Corpuscular 86.9 Volume Mean Corpuscular 27.3 L Hemoglobin Mean Corpuscular 31.4 L Hemoglobin Concent Red Cell 13.9 Distribution Width Platelet Count 452 H Mean Platelet Volume 10.3 Immature 0.400 Granulocytes % Neutrophils % 63.2 Lymphocytes % 28.3 Monocytes % 5.9 Eosinophils % 1.8 Basophils % 0.4 Nucleated Red Blood 0.0 Cells % Immature 0.030 Granulocytes # Neutrophils # 5.0 Lymphocytes # 2.3 Monocytes # 0.5 Eosinophils # 0.1 Basophils # 0.0 Nucleated Red Blood 0.0 Cells # Sodium Level 144 Potassium Level 4.0 Chloride Level 106 Carbon Dioxide Level 26 Anion Gap 12 Blood Urea Nitrogen 16 Creatinine 0.75 Est Glomerular > 60 Filtrat Rate mL/min Glucose Level 155 Calcium Level 10.3 H Bedside Glucose 130 Medications Medication Current Medications Sodium Chloride 1,000 ml @ 125 mls/hr Q8H IV Last administered on 07/16/18at 06:00; Admin Dose 125 MLS/HR; Start 07/13/18 at 14:00 Diagnostic Test (Pha) (Accu-Chek) 1 ea 02 XX ; Start 07/14/18 at 02:00 Insulin Glargine (Lantus) 15 units DAILY@2000 SC Last administered on 07/15/18 20:24; Admin Dose 15 UNITS; Start 07/13/18 at 20:00 Insulin Aspart (Novolog Insulin Pen) 5 unit WITH MEALS SC Last administered on 07/16/18 07:44; Admin Dose 5 UNIT; Start 07/13/18 at 18:30 Insulin Aspart (Novolog Insulin Pen) NOVOLOG *MILD* ALGORITHM WITH MEALS BEDTIME SC Last administered on 07/15/18 20:25; Admin Dose 1 UNIT; Start 07/13/18 at 18:30 Benztropine Mesylate (Cogentin) 2 mg BID PO Last administered on 07/16/18 08:33; Admin Dose 2 MG; Start 07/13/18 at 21:00 Docusate Sodium (Colace) 100 mg DAILY PO Last administered on 07/16/18 08:33; Admin Dose 100 MG; Start 07/14/18 at 09:00 Ferrous Sulfate (Ferrous Sulfate (Ec)) 325 mg DAILY PO Last administered on 07/16/18 08:32; Admin Dose 325 MG; Start 07/14/18 at 09:00 Gabapentin (Neurontin) 300 mg BID PO Last administered on 07/16/18 08:32; Ad min Dose 300 MG; Start 07/13/18 at 21:00 Gemfibrozil (Lopid) 600 mg BID PO Last administered on 07/16/18 08:32; Admin Dose 600 MG; Start 07/13/18 at 21:00 Haloperidol (Haldol) 5 mg BID PO Last administered on 07/16/18 08:32; Admin Dose 5 MG; Start 07/13/18 at 21:00 Sumatriptan Succinate (Imitrex) 100 mg DAILY PRN PO MIGRAINE HEADACHE Last administered on 07/16/18 00:18; Admin Dose 100 MG; Start 07/13/18 at 14:00 Acetaminophen (Tylenol Tab) 650 mg Q6H PRN PO FEVER; Start 07/13/18 at 16:00 Miscellaneous Information 1 ea NOTE XX ; Start 07/13/18 at 17:30 Glucose (Glutose) 15 gm Q15M PRN PO DECREASED GLUCOSE; Start 07/13/18 at 17:30 Glucose (Glutose) 22.5 gm Q15M PRN PO DECREASED GLUCOSE; Start 07/13/18 at 17:30 Dextrose (D50w Syringe) 25 ml Q15M PRN IV DECREASED GLUCOSE; Start 07/13/18 at 17:30 Dextrose (D50w Syringe) 50 ml Q15M PRN IV DECREASED GLUCOSE; Start 07/13/18 at 17:30 Glucagon (Glucagen) 1 mg Q15M PRN IM DECREASED GLUCOSE; Start 07/13/18 at 17:30 Glucose (Glutose) 15 gm Q15M PRN BUCCAL DECREASED GLUCOSE; Start 07/13/18 at 17:30 Pantoprazole (Protonix Tab) 40 mg DAILY@06 PO Last administered on 07/16/18at 06:00; Admin Dose 40 MG; Start 07/14/18 at 06:00 Aztreonam 50 ml @ 100 mls/hr Q12 IVPB Last administered on 07/16/18at 08:32; Admin Dose 100 MLS/HR; Start 07/14/18 at 16:00 RUSSEL WATTS Jul 16, 2018 10:54
[2018-07-16] MEDS: INSULIN GLARGINE [LANTus] (100 UNITS/ML) SYG SC SCH (20:15)
[2018-07-17] VITALS (8 sets, daily range): BP systolic 87–117; BP diastolic 51–75; PULSE 60–91; RESP 17–20
[2018-07-17] MEDS: ACCU-CHEK XX SCH (02:00)
[2018-07-17] MEDS: PANTOPRAZOLE (EC) 40 MG TAB PO SCH (05:06)
[2018-07-17] MEDS: SOD CHLORIDE 0.9% 1,000 ML IV SCH (05:07)
[2018-07-17] MEDS: INSULIN ASPART [NOVOLOG] 3 ML PEN SC SCH ×7 (07:25→21:00)
[2018-07-17] MEDS: BENZTROPINE 1 MG TAB PO SCH ×2 (08:34→20:53)
[2018-07-17] MEDS: AZTREONAM 1 GM/NS (PMX) 50 ML IVPB SCH ×2 (08:34→20:53)
[2018-07-17] MEDS: HALOPERIDOL 5 MG TAB PO SCH ×2 (08:35→20:53)
[2018-07-17] MEDS: DOCUSATE SODIUM 100 MG CAP PO SCH (08:35)
[2018-07-17] MEDS: FERROUS SULFATE (EC) 325 MG TAB PO SCH (08:35)
[2018-07-17] MEDS: GEMFIBROZIL 600 MG TAB PO SCH ×2 (08:35→20:53)
[2018-07-17] MEDS: GABAPENTIN 300 MG CAP PO SCH ×2 (08:35→20:53)
--- NOTE | 2018-07-17 10:52 | PN ---
Date/Time of Note Date/Time of Note DATE: 07/17/18 TIME: 10:52 Assessment/Plan VTE Prophylaxis Risk score (from Nsg)>0 risk: 1 SCD applied (from Nsg): Yes Pharmacological prophylaxis: other Lines/Catheters IV Catheter Type (from Nrsg): Peripheral IV Urinary Cath still in place: No Assessment/Plan Hospital Course S: Patient had no acute events overnight, no fevers. O: Vs - see below PE: HEENT: NC/ AT. PERRL. EOM intact Neck: supple CVS: S1, S2, RRR. no murmurs. no pain on chest wall palpation Lungs: CTA b/l. no wheezing or rhonchi Abd: soft, nontender, +BS Ext: moving all extremities skin: no rashes A/P: 33-year-old female who presents with: # sepsis 2/2 UTI and bacteremia-improving overall, no fevers for the last 48 hours since admission. Again, UA positive, and preliminary blood culture results show Aeromonas species. Blood pressure stable. - continue aztreonam twice daily, continue IV fluid hydration -Tylenol PRN pain and fevers, follow final culture results including urine and second blood culture -final results still pending. -Replete low electrolytes as needed # DM 2 - A1c equals 6.5. Sugars are stable. -Continue current insulin regimen # HLD -continue Lopid for now # GODWIN: Resolved now with IV fluid hydration -Monitor for now Result Diagram: 07/16/18 0609 07/16/18 0609 Results 24hrs Laboratory Tests Test 07/16/18 11:25 07/16/18 17:33 07/16/18 20:32 07/17/18 02:04 Bedside Glucose 158 140 167 169 Test 07/17/18 07:25 Bedside Glucose 122 Exam/Review of Systems Exam Vitals Vital Signs Date Temp Pulse Resp B/P (MAP) Pulse Ox O2 O2 Flow FiO2 Time Delivery Rate 07/17/18 75 08:07 07/17/18 97.4 20 100/60 96 07:26 (73) 07/17/18 Room Air 04:00 Intake and Output 07/16/18 07/16/18 07/17/18 1515:00 23:00 07:00 IntakeIntake Total 1025 ml 1765 ml 875 ml BalanceBalance 1025 ml 1765 ml 875 ml Results Results 24hrs Laboratory Tests Test 07/16/18 11:25 07/16/18 17:33 07/16/18 20:32 07/17/18 02:04 Bedside Glucose 158 140 167 169 Test 07/17/18 07:25 Bedside Glucose 122 Medications Medication Current Medications Sodium Chloride 1,000 ml @ 125 mls/hr Q8H IV Last administered on 07/17/18 05:07; Admin Dose 125 MLS/HR; Start 07/13/18 at 14:00 Diagnostic Test (Pha) (Accu-Chek) 1 ea 02 XX ; Start 07/14/18 at 02:00 Insulin Glargine (Lantus) 15 units DAILY@2000 SC Last administered on 07/16/18 20:15; Admin Dose 15 UNITS; Start 07/13/18 at 20:00 Insulin Aspart (Novolog Insulin Pen) 5 unit WITH MEALS SC Last administered on 07/17/18 07:28; Admin Dose 5 UNIT; Start 07/13/18 at 18:30 Insulin Aspart (Novolog Insulin Pen) NOVOLOG *MILD* ALGORITHM WITH MEALS BEDTIME SC Last administered on 07/16/18 11:29; Admin Dose 1 UNIT; Start 07/13/18 at 18:30 Benztropine Mesylate (Cogentin) 2 mg BID PO Last administered on 07/17/18 08:34; Admin Dose 2 MG; Start 07/13/18 at 21:00 Docusate Sodium (Colace) 100 mg DAILY PO Last administered on 07/17/18 08:35; Admin Dose 100 MG; Start 07/14/18 at 09:00 Ferrous Sulfate (Ferrous Sulfate (Ec)) 325 mg DAILY PO Last administered on 07/17/18 08:35; Admin Dose 325 MG; Start 07/14/18 at 09:00 Gabapentin (Neurontin) 300 mg BID PO Last administered on 07/17/18 08:35; Admin Dose 300 MG; Start 07/13/18 at 21:00 Gemfibrozil (Lopid) 600 mg BID PO Last administered on 07/17/18 08:35; Admin Dose 600 MG; Start 07/13/18 at 21:00 Haloperidol (Haldol) 5 mg BID PO Last administered on 07/17/18 08:35; Admin Dose 5 MG; Start 07/13/18 at 21:00 Sumatriptan Succinate (Imitrex) 100 mg DAILY PRN PO MIGRAINE HEADACHE Last administered on 07/16/18at 00:18; Admin Dose 100 MG; Start 07/13/18 at 14:00 Acetaminophen (Tylenol Tab) 650 mg Q6H PRN PO FEVER; Start 07/13/18 at 16:00 Miscellaneous Information 1 ea NOTE XX ; Start 07/13/18 at 17:30 Glucose (Glutose) 15 gm Q15M PRN PO DECREASED GLUCOSE; Start 07/13/18 at 17:30 Glucose (Glutose) 22.5 gm Q15M PRN PO DECREASED GLUCOSE; Start 07/13/18 at 17:30 Dextrose (D50w Syringe) 25 ml Q15M PRN IV DECREASED GLUCOSE; Start 07/13/18 at 17:30 Dextrose (D50w Syringe) 50 ml Q15M PRN IV DECREASED GLUCOSE; Start 07/13/18 at 17:30 Glucagon (Glucagen) 1 mg Q15M PRN IM DECREASED GLUCOSE; Start 07/13/18 at 17:30 Glucose (Glutose) 15 gm Q15M PRN BUCCAL DECREASED GLUCOSE; Start 07/13/18 at 17:30 Pantoprazole (Protonix Tab) 40 mg DAILY@06 PO Last administered on 07/17/18at 05:06; Admin Dose 40 MG; Start 07/14/18 at 06:00 Aztreonam 50 ml @ 100 mls/hr Q12 IVPB Last administered on 07/17/18at 08:34; Admin Dose 100 MLS/HR; Start 07/14/18 at 16:00 RUSSEL WATTS Jul 17, 2018 10:52
[2018-07-17] MEDS: INSULIN GLARGINE [LANTus] (100 UNITS/ML) SYG SC SCH (20:49)
[2018-07-17] MEDS: SUMATRIPTAN 50 MG TAB PO PRN (21:38)
[2018-07-18 02:00] VITALS: BP 93/62; PULSE 64; RESP 18
[2018-07-18] MEDS: ACCU-CHEK XX SCH (02:00)
[2018-07-18] MEDS: PANTOPRAZOLE (EC) 40 MG TAB PO SCH (05:49)
[2018-07-18 07:52] VITALS: BP 93/57; PULSE 87; RESP 17
[2018-07-18] MEDS: INSULIN ASPART [NOVOLOG] 3 ML PEN SC SCH ×4 (08:00→12:19)
[2018-07-18 08:01] VITALS: BP 93/57; PULSE 87; RESP 17
[2018-07-18] MEDS: HALOPERIDOL 5 MG TAB PO SCH (09:00)
[2018-07-18] MEDS: GABAPENTIN 300 MG CAP PO SCH (09:23)
[2018-07-18] MEDS: DOCUSATE SODIUM 100 MG CAP PO SCH (09:23)
[2018-07-18] MEDS: GEMFIBROZIL 600 MG TAB PO SCH (09:23)
[2018-07-18] MEDS: BENZTROPINE 1 MG TAB PO SCH (09:23)
[2018-07-18] MEDS: FERROUS SULFATE (EC) 325 MG TAB PO SCH (09:24)
[2018-07-18] MEDS: AZTREONAM 1 GM/NS (PMX) 50 ML IVPB SCH (09:24)
[2018-07-18] MEDS ORDERED: FER325 PO (13:31)
[2018-07-18] MEDS ORDERED: ASC500 PO (13:31)
[2018-07-18] MEDS ORDERED: DOCU-144 PO (13:31)
[2018-07-18] MEDS ORDERED: LACT1CAP57 PO (13:34)
[2018-07-18] MEDS ORDERED: FLUC200T52 PO (13:34)
[2018-07-18] MEDS ORDERED: LEVO500T10 PO (13:35)
--- NOTE | 2018-07-18 13:39 | PDOCDIS ---
Discharge Instructions CONDITION [id number] Patient Condition: [id number] Stable HOME CARE INSTRUCTIONS: [id number] Special Diet: [id number] diabetic diet ACTIVITY: [id number] Activity Restrictions: [id number] Slowly Increase Activity Rest between Activity FOLLOW UP/APPOINTMENTS Follow-up Plan You need to see her primary care doctor in the next 3-4 days, have them repeat your urine culture as well as your blood cultures. They have to make sure there is no more bacteria growing in the urine or in your blood. Use antibiotics I have prescribed for you, and ensure you complete it for 5 days. At this time, your final blood cultures are not available, but I will contact you on [phone] or will contact Annabella Myles on [phone] if I need to make any changes to your medications. Let the nurse know if this information is correct before you leave. GADIEL HERNÁNDEZ Jul 18, 2018 13:39
--- NOTE | 2018-07-18 13:47 | DS ---
DATE OF ADMISSION: 07/13/2018 DATE OF DISCHARGE: 07/18/2018 FINAL DIAGNOSES: 1. Sepsis secondary to urinary tract infection and bacteremia. 2. Diabetes mellitus with A1c of 6.5. 3. Dyslipidemia. 4. Acute renal insufficiency: Resolved. 5. Hypochromic anemia, stable. 6. Chronic psychiatric disorder, stable. 7. Chronic migraine headaches without acute exacerbation. CONSULTS ON THE CASE: None. INTERVENTIONS: Empiric antibiotic therapy. The patient received albumin infusion and aggressive IV fluid hydration to khalil off the shock with good response. SHORT HOSPITAL COURSE: Full details are available in chart for review. In summary, this 33-year-old female now had presented with fever and chills, was found to have an active urinary tract infection and blood cultures are growing gram-negative rods. Unfortunately at this time, the identification an d susceptibility of the gram-negative rods are still pending because per the lab which was send out, but the patient has done very well. Sepsis has resolved. We are going to send her home on empiric a ntibiotic therapy at this time and when susceptibility testing is available, I will contact her if we need to change her antibiotic regimen. The patient is also advised to follow up with her primary ca re doctor within the next 1 week to repeat blood cultures and urine cultures to ensure test of cure. She verbalized understanding with this. DISPOSITION: To home. ACTIVITIES: As tolerated. DIET: Recommended diet is a diabetic diet. DISCHARGE MEDICATIONS: For complete list of discharge medications, please review the patient's chart . Total time spent on discharge coordination and communication has been more than 45 minutes. Dictated By: GADIEL HERNÁNDEZ MD, BA/ZUNILDA Conf#: [id number] DID#: [id number] CC: RUSSEL WATTS;*Ariana*
[2018-07-18 15:22] VITALS: BP 93/57; PULSE 87; RESP 17
== END 2018-07-18 15:57 | disposition home or self-care (01) | DRG 872 ==
LOC: E/R 09:32 → TEL 12:22 → CANRESERV 12:58 → PP2 07-17 13:22
PROVIDERS: ADMIT Family Medicine; ATTEND Hospitalist
DX: A41.50 Gram-negative sepsis, unspecified (principal); N17.9 Acute kidney failure, unspecified; N39.0 Urinary tract infection, site not specified; E11.9 Type 2 diabetes mellitus without complications; E78.5 Hyperlipidemia, unspecified; I10 Essential (primary) hypertension; D64.9 Anemia, unspecified; F99 Mental disorder, not otherwise specified; Z88.0 Allergy status to penicillin
CPT/HCPCS: 71045; 76775; 80048; 80053; 81001; 82962; 83036; 83605; 83735; 84100; 85025; 87086; 93005; J0696; J1815; J1956; J3475; J7030; P9047

== ENCOUNTER 2018-11-12 20:51 | Emergency (ER) | payer OTHER ==
[~2018-11-12] VITALS: Ht 162.6 cm; Wt 77.6 kg
[~2018-11-12 20:51] MED LIST changes: +ABCC1C PO; +ASC500 PO; -AZIT250T PO; -BACTDS PO; +BEN50 PO; +CANA1TAB8 PO; -CEPH-443 PO; -CIPR500T4 PO; -D-ME473S2 PO; +DOCU-144 PO; -ELEC100080 PO; +FER325 PO; +FLUC200T52 PO; +GABA300C16 PO; +GEMF600T8 PO; -HYDR-4011 PO; -IBUP-1542 PO; +LACT1CAP57 PO; +LEVO500T10 PO; +LISI10TA2 PO; -LITH300T26 PO; -LORA1TAB PO; -METF-849 PO; -NAPR-985 PO; -NITR-58 PO; +OMEP20CA16 PO; -ONDA4TAB14 PO; -ONDA4TAB8 PO; +PALI273S IM; -PHEN-538 PO; -PSEU120T12 PO; +SUMA100T4 PO; -TRAM50TA2 PO
[2018-11-12 20:54] VITALS: Ht 162.6 cm; Wt 77.6 kg
[2018-11-12] MEDS ORDERED: KETOROLAC 30 MG INJ IM STA (21:33)
--- NOTE | 2018-11-12 21:34 | ERD ---
ER Documentation Chief Complaint Chief Complaint MEHTA since AM; hx of migraine HPI 33-year-old female, presents to the emergency department, complaining of migraine since this morning. The patient denies fever, no chills, no neck pain, no distal weakness, numbness or tingling. ROS All systems reviewed and are negative except as per history of present illness. Medications Home Meds Active Scripts Skgyiembod-Fzndjuvellamn-Kwqksgry* (Fioricet*) 50-300-40 Mg Capsule, 1 CAP PO Q4H PRN for HEADACHE, #30 CAP Prov:HAVEN JOHNSON PA-C 11/13/18 Mfawkxyuleqso-Cspwahnklf-Kopzbblm-Codeine* (Fioricet w/Codeine*) [id number] MG-30MG Cap, 1 CAP PO Q4H PRN for PAIN LEVEL 1-5, #20 CAP Prov:KARLA DUFFY MD 11/12/18 Levofloxacin* (Levofloxacin*) 500 Mg Tablet, 500 MG PO DAILY, #5 TAB Prov:[facility]RAY[facility]PITALDominik . 07/18/18 Lactobacillus Rhamnosus* (Culturelle*) 1 Each Cap.sprink, 1 CAP PO BID, #10 CAP Prov[facility]. 07/18/18 Fluconazole* (Fluconazole*) 200 Mg Tablet, 200 MG PO DAILY, #5 TAB Prov[facility]. 07/18/18 Ascorbic Acid (Vitamin C) 500 Mg Tab, 500 MG PO DAILY, #30 TAB 2 Refills Prov[facility]. 07/18/18 Ferrous Sulfate* (Ferrous Sulfate*) 325 Mg Tabec, 325 MG PO BID, #60 TAB 2 Refills Prov[facility]. 07/18/18 Docusate Sodium* (Colace*) 100 Mg Capsule, 100 MG PO BID, #60 CAP 2 Refills Prov:BETTYRAY [facility]NOR[facility] . 07/18/18 Reported Medications Paliperidone Palmitate (Invega Trinza) Unknown Strength Syringe, 1 IM Q 3 MON. 07/13/18 Haloperidol* (Haldol*) 5 Mg Tab, 5 MG PO BID, TAB TAKE 1 TAB-QAM AND 2 TAB-QHS 07/13/18 Benztropine Mesylate* (Benztropine Mesylate*) 2 Mg Tablet, 2 MG PO BID, TAB 07/13/18 Canagliflozin/Metformin HCl (Invokamet Xr 150-1,000 mg Tab) 1 Each Tab.bp.24h, 1 EACH PO BID, TAB 07/13/18 Omeprazole* (Omeprazole*) 20 Mg Capsule.dr, 20 MG PO DAILY, #30 CAP 07/13/18 Gabapentin* (Gabapentin*) 300 Mg Capsule, 300 MG PO BID, #60 CAP 07/13/18 Sumatriptan Succinate* (Sumatriptan Succinate*) 100 Mg Tablet, 100 MG PO NEEDED PRN for MIGRAINE HEADACHE, TAB May repeat after 2 hours if needed; MAX 200 mg/24 hours 07/13/18 Gemfibrozil* (Gemfibrozil*) 600 Mg Tablet, 600 MG PO BID, TAB 07/13/18 Lisinopril* (Lisinopril*) 10 Mg Tablet, 10 MG PO DAILY, #30 TAB 07/13/18 Allergies Allergies: Coded Allergies: Penicillins (Verified Allergy, Unknown, 07/13/18) PMhx/Soc History of Surgery: No Anesthesia Reaction: No Hx Neurological Disorder: No Hx Respiratory Disorders: No Hx Cardiac Disorders: No Hx Psychiatric Problems: No Hx Miscellaneous Medical Probl: No Hx Alcohol Use: No Hx Substance Use: No Hx Tobacco Use: No Smoking Status: Never smoker FmHx Family History: No diabetes, No coronary disease Physical Exam Vitals Vital Signs Date Temp Pulse Resp B/P (MAP) Pulse Ox O2 O2 Flow FiO2 Time Delivery Rate 11/12/18 97.7 86 18 129/83 100 20:54 (98) Physical Exam Const: No acute distress Head: Atraumatic Eyes: Normal Conjunctiva ENT: Normal External Ears, Nose and Mouth. Neck: Full range of motion. No meningismus. Resp: Clear to auscultation bilaterally Cardio: Regular rate and rhythm, no murmurs Abd: Soft, non tender, non distended. Normal bowel sounds Skin: No petechiae or rashes Back: No midline or flank tenderness Ext: No cyanosis, or edema Neur: Awake and alert Psych: Normal Mood and Affect Results 24 hrs Laboratory Tests Test 11/12/18 21:45 POC Beta HCG, Qualitative NEGATIVE Current Medications Medications Dose Sig/Mathew Start Time Status Last (Trade) Ordered Route PRN Stop Time Admin Dose Reason Admin Ketorolac 30 mg ONCE STAT 11/12/18 DC 11/12/18 Tromethamine IM 21:33 21:49 (Toradol) 11/12/18 21:36 Procedures/MDM Vital signs stable, Physical exam unremarkable, neurovascular exam intact. Differential diagnosis include but not limited to: Classical migraine, sinusitis, visual corrective problems, side effects of medications, dehydration, electrolyte imbalance, endocrine/autoimmune medical condition, stress, anxiety, tension headache. Low suspicion for meningitis, UI DEVELOPER tumor, cerebrovascular event. Physical examination and clinical presentation consistent most likely with migraine headache. During the ED course the patient remained stable, no new complaints. The patient received treatment with Toradol IM presenting overall improvement of the symptoms. Results and clinical impression discussed with patient who agrees with management. The patient is stable to be treated outpatient and will be discharged home, some side effects of prescribed medications (headache, rash, nausea, vomiting, diarrhea, drowsiness, habituation, bleeding, hypertension, interactions with other medications) were reviewed. Follow up with the primary care provider in the next 48h has been recommended. If symptoms persist, worsen or new symptoms develop, then patient should return to the ED immediately. Instructions explained and given directly by me to the patient with acknowledgment and demonstrated understanding. Disclaimer: Inadvertent spelling and grammatical errors are likely due to EHR/dictation software use and do not reflect on the overall quality of patient care. Also, please note that the electronic time recorded on this note does not necessarily reflect the actual time of the patient encounter. Departure Diagnosis: Primary Impression: Migraine headache Condition: Stable Additional Instructions: [facility] por [facility] para agarwal servicio. Esperamos que en agarwal visita a la peggy de emergencia agarwal problema medico haya sido solucionado y que se sienta mucho mejor. Para estar seguros que agarwal mejoria sigue en proceso, le pedimos el favor de hacer vandana taya de seguimiento medico con agarwal doctor primario en los proximos 2-4 herron. Lleve con usted estos documentos y las medicinas recetadas. Si mini sintomas empeoran, NO SE ESPERE, por favor regrese a peggy de emergencia INMEDIATAMENTE. En hailey que usted no tenga un mdico de atencin primaria: Llame al mdico o clnica comunitaria de referencia que aparece abajo booker las horas de consultorio para hacer vandana taya para que le vean. CLINICAS: [facility] [phone] [facility] [phone] [facility] [phone] [place] [id number] [phone] [place] [phone] [facility] [phone] KARLA LUI MD Nov 12, 2018 21:34
== END 2018-11-12 22:00 | disposition home or self-care (01) ==
LOC: FTE 20:51
DX: G43.909 Migraine, unspecified, not intractable, without status migrainosus (principal)
CPT/HCPCS: 81025; 96372; J1885; Z7502

== ENCOUNTER 2018-11-13 09:09 | Emergency (ER) | payer OTHER ==
[~2018-11-13] VITALS: Ht 165.1 cm; Wt 77.1 kg
[2018-11-13 09:13] VITALS: BP 107/66; PULSE 114; RESP 18; Ht 165.1 cm; Wt 77.1 kg
[2018-11-13] MEDS ORDERED: ONDANSETRON 4 MG INJ IV STA (09:28)
[2018-11-13] MEDS ORDERED: SOD CHLORIDE 0.9% 1,000 ML IV STA (09:28)
[2018-11-13] MEDS ORDERED: KETOROLAC 30 MG INJ IV STA (09:28)
== END 2018-11-13 11:05 | disposition home or self-care (01) ==
LOC: FTE 09:09
DX: R51 Headache (principal); I10 Essential (primary) hypertension
CPT/HCPCS: 36415; 70450; 80053; 81001; 81025; 83690; 85025; 96361; 96374; 96375; J1885; J2405; J7030; Z7502

== ENCOUNTER 2018-11-15 23:43 | Emergency (ER) | payer OTHER ==
[~2018-11-15] VITALS: Ht 162.6 cm; Wt 78.0 kg
[2018-11-15 23:48] VITALS: Ht 162.6 cm; Wt 78.0 kg
[2018-11-16] MEDS ORDERED: KETOROLAC 30 MG INJ IM STA (00:30)
[2018-11-16] MEDS ORDERED: DIPHENHYDRAMINE 50 MG INJ IM ONE (00:30)
[2018-11-16 01:25] VITALS: BP 118/74; PULSE 108; RESP 18
--- NOTE | 2018-11-16 01:29 | ERD ---
ER Documentation Chief Complaint Chief Complaint STATES UNABLE TO SLEEP X2 DAYS, C/O MEHTA HPI This is a 33-year-old female presenting to the emergency she also reports insomnia for the past 2 days. She denies any hallucinations, homicidal ideation, suicidal ideation, department complaining of intermittent headache for the past 2 days. She was seen here recently and had a negative head CT scan and blood work. Her current pain is rated 9/10 severity and constant. Or other symptoms at this time. ROS All systems reviewed and are negative except as per history of present illness. Medications Home Meds Active Scripts Diphenhydramine Hcl* (Benadryl*) 50 Mg Cap, 50 MG PO QHS PRN for INSOMNIA, #30 CAP Prov:CHEYANNE BRADFORD PA-C 11/16/18 Vjsslzumie-Iinfkvtusyvau-Wvrxvrif* (Fioricet*) 50-300-40 Mg Capsule, 1 CAP PO Q4H PRN for HEADACHE, #30 CAP Prov:HAVEN JOHNSON PA-C 11/13/18 Tszvzkwmyrkwc-Fnstjgyjhl-Honskgck-Codeine* (Fioricet w/Codeine*) [id number] Cap, 1 CAP PO Q4H PRN for PAIN LEVEL 1-5, #20 CAP Prov:KARLA DUFFY MD 11/12/18 Levofloxacin* (Levofloxacin*) 500 Mg Tablet, 500 MG PO DAILY, #5 TAB Prov:BETTYGADIEL M. 07/18/18 Lactobacillus Rhamnosus* (Culturelle*) 1 Each Cap.sprink, 1 CAP PO BID, #10 CAP Prov:BETTYGADIEL M. 07/18/18 Fluconazole* (Fluconazole*) 200 Mg Tablet, 200 MG PO DAILY, #5 TAB Prov:B[facility]TYRAYATRIUM [facility]ALTH CABARRUSO M. 07/18/18 Ascorbic Acid (Vitamin C) 500 Mg Tab, 500 MG PO DAILY, #30 TAB 2 Refills Prov:BETTYGADIEL . 07/18/18 Ferrous Sulfate* (Ferrous Sulfate*) 325 Mg Tabec, 325 MG PO BID, #60 TAB 2 Refills Prov:BETTYGADIEL . 07/18/18 Docusate Sodium* (Colace*) 100 Mg Capsule, 100 MG PO BID, #60 CAP 2 Refills Prov:BETTYRAY SalinasATITO M. 07/18/18 Reported Medications Paliperidone Palmitate (Invega Trinza) Unknown Strength Syringe, 1 IM Q 3 MON. 07/13/18 Haloperidol* (Haldol*) 5 Mg Tab, 5 MG PO BID, TAB TAKE 1 TAB-QAM AND 2 TAB-QHS 07/13/18 Benztropine Mesylate* (Benztropine Mesylate*) 2 Mg Tablet, 2 MG PO BID, TAB 07/13/18 Canagliflozin/Metformin HCl (Invokamet Xr 150-1,000 mg Tab) 1 Each Tab.bp.24h, 1 EACH PO BID, TAB 07/13/18 Omeprazole* (Omeprazole*) 20 Mg Capsule.dr, 20 MG PO DAILY, #30 CAP 07/13/18 Gabapentin* (Gabapentin*) 300 Mg Capsule, 300 MG PO BID, #60 CAP 07/13/18 Sumatriptan Succinate* (Sumatriptan Succinate*) 100 Mg Tablet, 100 MG PO NEEDED PRN for MIGRAINE HEADACHE, TAB May repeat after 2 hours if needed; MAX 200 mg/24 hours 07/13/18 Gemfibrozil* (Gemfibrozil*) 600 Mg Tablet, 600 MG PO BID, TAB 07/13/18 Lisinopril* (Lisinopril*) 10 Mg Tablet, 10 MG PO DAILY, #30 TAB 07/13/18 Allergies Allergies: Coded Allergies: Penicillins (Verified Allergy, Unknown, 07/13/18) PMhx/Soc History of Surgery: Yes (APPENDECTOMY,C SECTION) Anesthesia Reaction: No Hx Neurological Disorder: No Hx Respiratory Disorders: No Hx Cardiac Disorders: Yes (HTN,HYPERCHOL) Hx Psychiatric Problems: No Hx Miscellaneous Medical Probl: Yes (ANOREXIA ) Hx Alcohol Use: No Hx Substance Use: No Hx Tobacco Use: No Smoking Status: Never smoker Physical Exam Vitals Vital Signs Date Temp Pulse Resp B/P (MAP) Pulse Ox O2 O2 Flow FiO2 Time Delivery Rate 11/16/18 97.9 108 18 118/74 96 01:25 (89) 11/15/18 97.2 110 17 133/80 98 23:48 (97) Physical Exam Const: No acute distress Head: Atraumatic Eyes: Normal Conjunctiva ENT: Normal External Ears, Nose and Mouth. Neck: Full range of motion. No meningismus. Resp: Clear to auscultation bilaterally Cardio: Regular rate and rhythm, no murmurs Abd: Soft, non tender, non distended. Normal bowel sounds Skin: No petechiae or rashes Back: No midline or flank tenderness Ext: No cyanosis, or edema Neur: Awake and alert Psych: Normal Mood and Affect Results 24 hrs Laboratory Tests Test 11/16/18 01:06 POC Beta HCG, Qualitative NEGATIVE Current Medications Medications Dose Sig/Mathew Start Time Status Last (Trade) Ordered Route PRN Stop Time Admin Dose Reason Admin 50 mg ONCE ONCE 11/16/18 DC 11/16/18 Diphenhydrami IM 00:30 01:07 ne HCl 11/16/18 00:31 (Benadryl) Ketorolac 30 mg ONCE STAT 11/16/18 DC 11/16/18 Tromethamine IM 00:30 01:08 (Toradol) 11/16/18 00:31 Procedures/MDM 33-year-old female presenting to the emergency department complaining of intermittent insomnia for the past 2 days. She is also had a headache. She is administered Ativan and Toradol in the department with improvement of her symptoms. She denies any homicidal or suicidal ideation. I doubt sepsis. I doubt meningitis. I doubt serious bacterial infection. No evidence of life- threatening or emergent pathology. Patient will be discharged home in stable condition with prescriptions to treat her symptoms at home. She was advised follow-up with the psychiatrist. Patient was in agreement with the diagnosis, plan, need for follow-up, return precautions. She should return immediately for any new or concerning symptoms. Departure Diagnosis: Primary Impression: Insomnia Condition: Fair Patient Instructions: Treating Insomnia, Insomnia Additional Instructions: Call your primary care doctor TOMORROW for an appointment during the next 1-2 days.See the doctor sooner or return here if your condition worsens before your appointment time. CHEYANNE BRADFORD PA-C Nov 16, 2018 01:29
== END 2018-11-16 01:29 | disposition home or self-care (01) ==
LOC: FTE 23:43
DX: G47.00 Insomnia, unspecified (principal); I10 Essential (primary) hypertension
CPT/HCPCS: 81025; 96372; J1200; J1885; Z7502